=== PATIENT | female | born 1975 | race Caucasian/White ===

== ENCOUNTER → 2020-12-31 14:14 | Outpatient (BNVA) | payer OTHER, SELFPAY | PROVIDERS: PCP Family Medicine; Visit Provider Physician Assistant ==

== ENCOUNTER → 2021-01-01 08:16 | Outpatient (BNVA) | payer OTHER, SELFPAY | PROVIDERS: PCP Family Medicine; Visit Provider Surgery ==

== ENCOUNTER → 2021-01-02 08:26 | Outpatient (BNVA) | payer OTHER, SELFPAY | PROVIDERS: PCP Family Medicine; Visit Provider Surgery ==

== ENCOUNTER 2021-01-13 07:38 | Outpatient (REF) | payer OTHER, SELFPAY ==
--- NOTE | ~2021-01-13 | XR_ITS ---
EXAMINATION: XR CHEST CLINICAL INFORMATION: Morbid obesity secondary to excess calories. COMPARISON: None TECHNIQUE: 2 views of the chest were obtained. FINDINGS: No significant abnormality is noted involving the heart, lungs, mediastinum, bony thorax or soft tissues. A right-sided dual-lead pacemaker is in good position without abnormality. XR/XR chest 2V IMPRESSION: No acute cardiopulmonary process.
--- NOTE | 2021-01-13 08:10 | ECG_ITS ---
Test Reason : E66.01 MORBID OBESIT Blood Pressure : / mmHG Vent. Rate : 057 BPM Atrial Rate : 057 BPM P-R Int : 204 ms QRS Dur : 164 ms QT Int : 510 ms P-R-T Axes : 035 097 -13 degrees QTc Int : 496 ms Atrial-sensed ventricular-paced rhythm Abnormal ECG No previous ECGs available Referred By: Genaro Angel Electronically Signed By:Christiano Trimble
[2021-01-13 08:23] LABS: MANUAL DIFF FLAG NO
[2021-01-13 08:30] LABS: Basophils Percent Auto 0.7 % (0-2); Eosinophils Absolute Auto 0.4 X10*3/uL (0.0-0.4); Eosinophils Percent Auto 6.5 % (0-4); Hematocrit 42.2 % (37-47); Hemoglobin 13.8 g/dl (12.0-16.0); Imm Gran Abs Auto 0.01 X10*3/uL (0.00-0.03); Imm Gran Pct Auto 0.2 % (0.0-0.4); Lymphocytes Absolute Auto 2.1 X10*3/uL (1.2-4.9); Lymphocytes Percent Auto 37.6 % (20-40); Mean Corpuscular HGB Conc 32.7 g/dl (31.0-35.0); Mean Corpuscular Hemoglobin 30.1 pg (27.0-33.0); Mean Corpuscular Volume 91.9 fL (80-98); Mean Platelet Volume 11.7 fL (9.4-12.3); Monocytes Absolute Auto 0.5 X10*3/uL (0.1-1.2); Monocytes Percent Auto 8.6 % (2-11); Neutrophils Absolute Auto 2.6 X10*3/uL (2.0-8.3); Neutrophils Percent Auto 46.4 % (45-73); Platelet Count 290 X10*3/uL (160-400); Red Blood Count 4.59 X10*6/uL (4.20-5.50); Red Cell Distribution Width 13.1 % (11.0-16.0); White Blood Count 5.7 X10*3/uL (4.8-10.8)
[2021-01-13 08:33] LABS: Estimated Average Glucose 100 mg/dL; Hemoglobin A1c % 5.1 %
[2021-01-13 08:52] LABS: Alanine Aminotransferase 37 U/L (0-31); Albumin Level 3.9 g/dL (3.5-5.0); Alkaline Phosphatase 55 U/L (39-117); Anion Gap 11 (12-20); Aspartate Amino Transferase 24 U/L (5-31); Bilirubin Total 0.3 mg/dL (0.0-1.0); Blood Urea Nitrogen 18 mg/dL (9-16); Calcium 8.9 mg/dL (8.4-10.2); Carbon Dioxide 29 mmol/L (22-29); Chloride 104 mmol/L (96-108); Cholesterol 163 mg/dL; Estimated Glomerular Filt Rate > 60; Glucose Random 79 mg/dL (60-115); HDL Cholesterol 45 mg/dL; LDL Cholesterol Calculated 103 mg/dl; Potassium 4.6 mmol/L (3.3-5.1); Sodium 139 mmol/L (135-145); Total Protein 6.7 g/dL (6.5-8.0); Triglycerides 78 mg/dL
[2021-01-13 09:17] LABS: Ferritin 16 ng/mL (10-250); TSH reflex Free T4 0.99 uIU/mL (0.32-4.0); Vitamin D 25-OH Total 27.3 ng/mL (>30)
[2021-01-13 09:29] LABS: Folate 12.7 ng/mL (> or = 4.0); Vitamin B12 574 pg/mL (200-900)
[2021-01-14 14:57] LABS: H Pylori Breath Test NOT DETECTED (NOT DETECTED)
[2021-01-14 15:46] LABS: Calcium (PTHI) 9.2 mg/dL (8.6-10.2); PTHI 31 pg/mL (14-64)
[2021-01-16 00:47] LABS: Zinc 84 mcg/dL (60-130)
[2021-01-16 11:56] LABS: Vitamin B1 10 nmol/L (8-30)
[2021-01-19 04:21] LABS: Vitamin A 46 mcg/dL (38-98)
== END 2021-01-13 07:39 | disposition home or self-care (01) ==
LOC: HO.LAB 07:38
PROVIDERS: PCP Family Medicine; Visit Provider Surgery
DX: E66.01 Morbid (severe) obesity due to excess calories (principal); I10 Essential (primary) hypertension; J45.909 Unspecified asthma, uncomplicated
CPT/HCPCS: 36415; 71046; 80053; 80061; 82306; 82607; 82728; 82746; 83013; 83036; 83525; 83970; 84425; 84443; 84590; 84630; 85025; 86140; 93005

== ENCOUNTER → 2021-01-23 08:39 | Outpatient (BNVA) | payer OTHER, SELFPAY | PROVIDERS: PCP Family Medicine; Visit Provider Surgery ==

== ENCOUNTER 2021-01-28 08:02 | Outpatient (REF) | payer OTHER, SELFPAY ==
--- NOTE | ~2021-01-28 | US_ITS ---
EXAMINATION: US COMPLETE ABDOMEN WITH LIVER ELASTOGRAPHY CLINICAL INFORMATION: Morbid/severe obesity due to excess calories. COMPARISON: None. TECHNIQUE: Real-time imaging of the abdominal viscera. Noninvasive ultrasound liver fibrosis assessment is performed using [employer] ElastPQ point quantification shear wave elastography (pSWE) with a C5-2 MHz transducer. Multiple elastography samples are obtained. FINDINGS: PANCREAS: Normal. The visualized pancreatic head and body are normal in appearance. The remainder of the pancreas is obscured from visualization by the overlying bowel gas. ABDOMINAL AORTA: The proximal, middle, and distal aortic segments are normal in caliber. INFERIOR VENA CAVA: Visualized portions are normal. LIVER: The liver demonstrates normal size, contour and increased echogenicity. No focal lesion or intrahepatic biliary duct dilatation. The right lobe measures 15.3 cm in length. The left lobe measures 6.3 cm in length. Portal flow is hepatopedal. Shear wave liver elastography median stiffness is 1.01 m/s (reference: normal median stiffness is 1.3 m/s or less). IQR/median stiffness to assess sampling precision is 0.05 (reference: good quality data set is IQR/median stiffness of 0.15 or less). GALLBLADDER: Normal. The gallbladder is physiologically distended without evidence of stones, sludge, polyps, wall thickening or pericholecystic fluid. COMMON BILE DUCT: Normal in caliber measuring 0.18 cm in diameter. RIGHT KIDNEY: Normal. No hydronephrosis. No renal calculi or focal parenchymal lesions. The kidney measures 10.6 cm in maximum dimension. LEFT KIDNEY: Normal. No hydronephrosis. No renal calculi or focal parenchymal lesions. The kidney measures 11.2 cm in maximum dimension. SPLEEN: Normal. The spleen measures 9.9 cm in maximum dimension. FREE FLUID: None. US/US abdomen comp w elastography IMPRESSION: 1. Hepatic steatosis without any focal lesion. The rest of the abdominal ultrasound is unremarkable. 2. Liver elastography: Mean stiffness 1.01 m/s. Normal exam. REFERENCE: Society of Radiologists in Ultrasound Liver Stiffness Thresholds (2020): LIVER STIFFNESS THRESHOLDS: *Liver Stiffness equal or less than 1.3 m/s: High probability of being normal. *Liver Stiffness less than 1.7 m/s: In the absence of other known clinical signs, rules out compensated advanced chronic liver disease. *Liver Stiffness 1.7-2.1 m/s: Suggestive of compensated advanced chronic liver disease but need further test for confirmation. *Liver Stiffness over 2.1 m/s: Rules in compensated advanced chronic liver disease. *Liver Stiffness over 2.4 m/s: Suggestive of clinically significant portal hypertension. QUALITY OF DATA SET: *IQR/Median value equal or less than 0.15 implies a quality data set. *IQR/Median value over 0.15 implies a poor quality data set. SIGNIFICANT CHANGE FROM PRIOR EXAM: Significant change if liver stiffness measurement is 10% or greater from prior exam. OTHER CONSIDERATIONS: The stage of liver fibrosis may be overestimated in the setting of acute hepatitis, liver inflammation, elevated liver function tests, hepatic vascular congestion, obstructive cholestasis, non-fasting state, and infiltrative diseases such as amyloidosis and lymphoma. In some patients with NAFLD, the liver stiffness thresholds for compensated advanced chronic liver disease may be lower. In causes other than viral hepatitis and NAFLD, liver stiffness thresholds are not well established.
--- NOTE | ~2021-01-28 | FL_ITS ---
EXAMINATION: XR GI SERIES CLINICAL INFORMATION: Morbid obesity due to excessive calories. COMPARISON: None. TECHNIQUE: Routine upper GI air-contrast study was performed in upright and lying position. FINDINGS: Following oral administration of thick barium and effervescent granules, there is normal propagation of bolus from the oral cavity through the pharynx and esophagus and into the stomach without obstruction or narrowing. On placing patient supine and prone, the course, caliber and peristalsis of the stomach are normal. There is a small sliding hiatal hernia with moderate gastroesophageal reflux. The mucosal pattern of the stomach, duodenum bulb and the sweep are normal. The course and caliber of the duodenum is normal. Incidental finding of dual pacer electrodes in right atrium and right ventricle. FLUOROSCOPY TIME: 2.1 minutes. DOSE AREA PRODUCT: 37.25 uGy-m2 (microgray-meter squared). FL/FL upper GI series IMPRESSION: Small sliding hiatal hernia with moderate gastroesophageal reflux.
== END 2021-01-28 08:03 | disposition home or self-care (01) ==
LOC: HO.US 08:02
PROVIDERS: Visit Provider Surgery
DX: Z01.818 Encounter for other preprocedural examination (principal); E66.01 Morbid (severe) obesity due to excess calories; K21.9 Gastro-esophageal reflux disease without esophagitis; I10 Essential (primary) hypertension; J45.909 Unspecified asthma, uncomplicated
CPT/HCPCS: 74240; 76705; 76981

== ENCOUNTER → 2021-01-28 09:08 | Outpatient (REF) | payer OTHER, SELFPAY | LOC: HO.CARD 09:08 | PROVIDERS: Visit Provider Surgery | DX: Z13.89 Encounter for screening for other disorder (principal) ==

== ENCOUNTER → 2021-02-18 08:16 | Outpatient (BNVA) | payer OTHER, SELFPAY | PROVIDERS: PCP Family Medicine; Visit Provider Surgery ==

== ENCOUNTER → 2021-02-26 09:47 | Outpatient (REF) | payer OTHER, SELFPAY ==
--- NOTE | 2021-02-26 09:53 | CA_ITS ---
Transthoracic Echocardiogram Patient (Last, First, Middle): February, Gender: Female Date of : 1975 Age: 45 Procedure Date: 02/26/2021 Procedure Type: Transthoracic Echocardiogram Location: OP Height: 154.94 cm Weight: 93.44 kg BSA: 1.91 m2 Heart Rate: bpm BP: 126 / 80 mmHg Offset Machine Operator: REMIGIO Avilez MD: Genaro Angel MD [facility] Room Attendant: Lalito Sharp MD Symptoms: R94.31 - Abnormal electrocardiogram [ECG] [EKG] Study Quality: Fair/contrast ECG Rhythm: Ventriculary paced rhythm Conclusions: - 1. Low normal LV systolic function with normal diastolic function 2. Normal cardiac valvular Doppler 3. Normal RV systolic pressure 4. No pericardial effusion Findings Procedure Information Contrast agent, definity, is being given per protocol without apparent complications. Left Ventricle Normal left ventricular cavity size. There is normal left ventricular wall thickness. The left ventricular systolic function is low normal. The visually estimated ejection fraction is between 50-55%. There is paradoxical septal motion consistent with a right ventricular pacemaker. Diastolic function is normal for age. Right Ventricle Normal right ventricular cavity size and systolic function. There is a pacemaker wire seen in the right ventricle. Atria The left atrium is likely dilated. There is no evidence of interatrial shunt. The right atrium is normal in size. A pacemaker wire is identified in the right atrium. Aortic Valve The aortic valve structure and function is likely normal. There is no aortic valve stenosis. There is no aortic valve regurgitation. Mitral Valve Likely normal mitral valve structure and function. There is trace mitral valve regurgitation. There is no mitral valve stenosis. Pulmonic Valve The pulmonic valve was not well visualized. Tricuspid Valve Likely normal tricuspid valve structure and function. There is mild tricuspid valve regurgitation. The right ventricular systolic pressure is normal. The right ventricular systolic pressure is 22 mmHg. Normal right atrial pressure. There is no evidence of pulmonary hypertension. Great Vessels All visible segments of the aorta are normal in size. The pulmonary artery was not well visualized. Venous The inferior vena cava is normal in size and collapses greater than 50% with inspiration. Pericardium/Pleural There is no evidence of pericardial effusion. Prior Study Comparison No prior study available for comparison. Measurements 2D Linear Measurements IVSd: 1.01 0.6-0.9/0.6-1.0 cm LVIDd: 4.05 3.9-5.3/4.2-5.9 cm LVIDd Index: 2.12 2.4-3.2/2.2-3.1 cm/m2 LVIDs: 2.85 2.0-3.6 cm LVPWd: 1.02 0.7-1.1 cm Ao Root: 2.90 2.1-3.5 cm LA Diam: 3.40 2.7-3.8/3.0-4.0 cm LAIDs Index: 1.78 1.5-2.3 cm/m2 LV Mass: 164.66 67-162/88-224 g LV Mass Index: 86.21 43-95/49-115 g/m2 LVOT Diam: 2.00 3.0+(-)1.3 cm 2D Systolic Function EF 4C: 54.30 >55% EF 2C: 54.50 >55% EF BiP: 53.50 >55% Mitral Valve MV Pk E: 0.66 MV PK A: 0.54 MV Decel Time: 263.00 E/A: 1.20 E'Lateral: 10.80 E'Medial: 6.64 E/E' Med: 9.90 E/E' Lat: 6.10 PHT: 77.00 MVA PHT: 2.86 Decel Hutchinson: 2.49 Aortic Valve AoV Pk Mariusz: 1.05 AoV Mn Mariusz: 0.81 AoV VTI: 0.27 AoV Pk Grad: 4.00 Aov Mn Grad: 3.00 AGUILAR Cont.VTI: 2.74 LVOT LVOT Pk Mariusz: 1.10 LVOT Mn Mariusz: 0.66 LVOT VTI: 0.24 LVOT Pk Grad: 5.00 LVOT Mn Grad: 2.00 LVOT Diam: 2.00 LVOT Area: 3.14 Diastolic Function MV Pk E: 0.66 MV Pk A: 0.54 E/A: 1.20 E'Medial: 6.64 E/E' Med: 9.90 E' Laterial: 10.80 E/E' Lat: 6.10 Tricuspid Valve TR Pk Mariusz: 2.20 TR Pk Grad: 19.00 RA Press: 3.00 RVSP: 22.00 Great Vessels Aorta Ao Root-2D: 2.90 2.0-3.7 cm Ao Asc: 3.30 2.1-3.4 cm Ao Arch: 2.50 Updated in Other Vendor System with Status of Final Lalito Sharp MD electronically signed on 03/01/2021 12:16:19 PM with status of Final
== END ==
LOC: HO.CARD 09:47
PROVIDERS: Visit Provider Surgery
DX: Z01.818 Encounter for other preprocedural examination (principal); R94.31 Abnormal electrocardiogram [ECG] [EKG]; I10 Essential (primary) hypertension
CPT/HCPCS: 93306; Q9957

== ENCOUNTER → 2021-03-13 08:33 | Outpatient (BNVA) | payer OTHER, SELFPAY | PROVIDERS: PCP Family Medicine; Visit Provider Surgery ==

== ENCOUNTER → 2021-04-01 08:16 | Outpatient (BNVA) | payer OTHER, SELFPAY | PROVIDERS: PCP Family Medicine; Visit Provider Surgery ==

== ENCOUNTER → 2021-04-14 07:42 | Outpatient (BNVA) | payer OTHER, SELFPAY | PROVIDERS: PCP Family Medicine; Visit Provider Surgery ==

== ENCOUNTER 2021-04-17 07:57 | Outpatient (REF) | payer OTHER, SELFPAY ==
[2021-04-17 09:11] LABS: MANUAL DIFF FLAG NO
[2021-04-17 09:13] LABS: Basophils Percent Auto 0.6 % (0-2); Eosinophils Absolute Auto 0.4 X10*3/uL (0.0-0.4); Eosinophils Percent Auto 7.3 % (0-4); Hematocrit 40.5 % (37-47); Hemoglobin 13.5 g/dl (12.0-16.0); Imm Gran Abs Auto 0.01 X10*3/uL (0.00-0.03); Imm Gran Pct Auto 0.2 % (0.0-0.4); Lymphocytes Absolute Auto 1.7 X10*3/uL (1.2-4.9); Lymphocytes Percent Auto 35.2 % (20-40); Mean Corpuscular HGB Conc 33.3 g/dl (31.0-35.0); Mean Corpuscular Hemoglobin 30.7 pg (27.0-33.0); Mean Platelet Volume 12.1 fL (9.4-12.3); Monocytes Absolute Auto 0.5 X10*3/uL (0.1-1.2); Monocytes Percent Auto 9.9 % (2-11); Neutrophils Absolute Auto 2.2 X10*3/uL (2.0-8.3); Neutrophils Percent Auto 46.8 % (45-73); Platelet Count 224 X10*3/uL (160-400); Red Cell Distribution Width 13.3 % (11.0-16.0); White Blood Count 4.8 X10*3/uL (4.8-10.8)
[2021-04-17 09:18] LABS: INTERNATIONAL NORM RATIO 1.2 (0.9-1.1); Prothrombin Time 14.2 SEC (10.8-13.0)
[2021-04-17 09:21] LABS: Partial Thromboplastin Time 35.7 SEC (24.1-38.0)
[2021-04-17 09:36] LABS: Alanine Aminotransferase 28 U/L (0-31); Albumin Level 3.9 g/dL (3.5-5.0); Alkaline Phosphatase 51 U/L (39-117); Anion Gap 12 (12-20); Aspartate Amino Transferase 23 U/L (5-31); Bilirubin Total 0.4 mg/dL (0.0-1.0); Blood Urea Nitrogen 15 mg/dL (9-16); C Reactive Protein 0.35 mg/dL (< or = 0.50); Calcium 9.2 mg/dL (8.4-10.2); Carbon Dioxide 27 mmol/L (22-29); Chloride 106 mmol/L (96-108); Cholesterol 171 mg/dL; Estimated Glomerular Filt Rate > 60; Glucose Random 81 mg/dL (60-115); HDL Cholesterol 44 mg/dL; LDL Cholesterol Calculated 113 mg/dl; Potassium 4.6 mmol/L (3.3-5.1); Sodium 140 mmol/L (135-145); Total Protein 6.7 g/dL (6.5-8.0); Triglycerides 70 mg/dL
[2021-04-17 09:58] LABS: TSH reflex Free T4 1.64 uIU/mL (0.32-4.0)
[2021-04-17 10:00] LABS: Estimated Average Glucose 100 mg/dL; Hemoglobin A1c % 5.1 %
[2021-04-20 11:47] LABS: Insulin Level Total 3.1 uIU/mL
== END 2021-04-17 07:58 | disposition home or self-care (01) ==
LOC: HO.LAB 07:57
PROVIDERS: PCP Family Medicine; Visit Provider Surgery
DX: E66.9 Obesity, unspecified (principal); Z68.36 Body mass index [BMI] 36.0-36.9, adult
CPT/HCPCS: 36415; 80053; 80061; 83036; 83525; 84443; 85025; 85610; 85730; 86140

== ENCOUNTER 2021-04-22 16:49 | Inpatient (IN) | payer OTHER, SELFPAY ==
[2021-04-17 10:55] VITALS: BMI 36.1
--- NOTE | 2021-04-17 13:47 | P.CONAN_ITS ---
Documented by User: Chantale Xiong 04/17/21 13:52 HPI - Anesthesia Eval Consult details Narrative: 45yo F for Gastrectomy Sleeve, EGD, Poss Diaphragmatic Hernia, Poss Ventral Hernia, Poss Open Cardiac/EP cleared [employer] Pacer in situ ([facility]) [facility] Active Problems Active Problems: All Active Problems (Updated 04/17/21 @ 11:06 by Laisha Zee) Abnormal EKG (Acute) Vitamin D deficiency (Acute) Obesity (Acute) BMI 39.0-39.9,adult (Acute) BMI 38.0-38.9,adult (Acute) BMI 37.0-37.9, adult (Acute) Constipation (Acute) BMI 36.0-36.9,adult (Acute) Sciatica (Acute) Anxiety (Acute) Depression (Acute) Hypertension (Acute) Asthma (Acute) Morbid obesity (Acute) Past Medical History Medical History Anxiety Asthma COVID-19 vaccine series completed Depression Environmental and seasonal allergies Hx of complete atrioventricular block Hypertension Hypothyroidism Morbid obesity Sciatica Seasonal allergies Family History Family History Mother No problems noted. Father Bladder cancer Brother No problems noted. Daughter No problems noted. Surgical History Surgical History History of permanent cardiac pacemaker placement Hx of wisdom tooth extraction Social History Social History Are you a primary care transport nurse to a significant other at home: No Do you presently have visiting nurse or other home services: No Alcohol intake: never Patient Tobacco Use Status: Never used Tobacco Meds Allergies Allergy/AdvReac Type Severity Reaction Status Date / Time No Known Allergies Allergy Verified 04/22/21 10:06 Home Medications Medication Instructions Recorded Confirmed Last Taken Type albuterol sulfate 90 mcg/actuation 1 puff PO Q4-6H PRN 12/31/20 04/17/21 Unknown History aerosol inhaler cetirizine 10 mg capsule 10 mg PO DAILY PRN 12/31/20 04/17/21 Unknown History escitalopram oxalate 20 mg tablet 20 mg PO DAILY 12/31/20 04/17/21 04/22/21 06:30 History levothyroxine 50 mcg tablet 50 mcg PO DAILY 12/31/20 04/17/21 04/22/21 06:30 History Exam Exam Date and Time: April 17, 2021 1347 Height,Weight and Vital Signs: Height 5 ft 1 in Weight 86.636 kg Pertinent Lab Results Pertinent Lab Results: Laboratory Tests 04/17/21 08:26 Blood Type O Positive Antibody Screen NEGATIVE Laboratory Tests 04/17/21 04/17/21 04/17/21 08:26 08:26 08:26 WBC 4.8 Hgb 13.5 Hct 40.5 Plt Count 224 PT 14.2 H INR 1.2 H APTT 35.7 Sodium 140 Potassium 4.6 Chloride 106 Carbon Dioxide 27 Anion Gap 12 BUN 15 Creatinine 0.75 Estimated GFR > 60 Calcium 9.2 Total Bilirubin 0.4 AST 23 ALT 28 Alkaline Phosphatase 51 C-Reactive Protein 0.35 Total Protein 6.7 Albumin 3.9 TSH 1.64 Narrative Narrative: EKG 01/2021 Vent. Rate : 057 BPM Atrial Rate : 057 BPM P-R Int : 204 ms QRS Dur : 164 ms QT Int : 510 ms P-R-T Axes : 035 097 -13 degrees QTc Int : 496 ms Atrial-sensed ventricular-paced rhythm Abnormal ECG No previous ECGs available ECHO 02/2021 Conclusions: - 1. Low normal LV systolic function with normal diastolic function 2. Normal cardiac valvular Doppler 3. Normal RV systolic pressure 4. No pericardial effusion Pacer Interrogation 02/2021 Patient does have a hx of atrial lead noise but is appropriately sensing. Impedence 228 ohms which has been stable. Otherwise excellent lead parameters No significant arrhythmias noted Battery life remainin years Underlying complete heart block 100% V paced Assessment and Plan Assessment Anesthesia Assessment: Chart Reviewed Documented by User: Jabier Cuevas 04/22/21 11:45 PMFSH Past Medical History Medical History Anxiety Asthma COVID-19 vaccine series completed Depression Environmental and seasonal allergies Hx of complete atrioventricular block Hypertension Hypothyroidism Morbid obesity Sciatica Seasonal allergies Family History Family History Mother No problems noted. Father Bladder cancer Brother No problems noted. Daughter No problems noted. Surgical History Surgical History History of permanent cardiac pacemaker placement Hx of wisdom tooth extraction Social History Social History Are you a primary care transport nurse to a significant other at home: No Do you presently have visiting nurse or other home services: No Alcohol intake: never Patient Tobacco Use Status: Never used Tobacco Meds Allergies Allergy/AdvReac Type Severity Reaction Status Date / Time No Known Allergies Allergy Verified 04/22/21 10:06 Home Medications Medication Instructions Recorded Confirmed Last Taken Type albuterol sulfate 90 mcg/actuation 1 puff PO Q4-6H PRN 12/31/20 04/17/21 Unknown History aerosol inhaler cetirizine 10 mg capsule 10 mg PO DAILY PRN 12/31/20 04/17/21 Unknown History escitalopram oxalate 20 mg tablet 20 mg PO DAILY 12/31/20 04/17/21 04/22/21 06:30 History levothyroxine 50 mcg tablet 50 mcg PO DAILY 12/31/20 04/17/21 04/22/21 06:30 History Exam Airway Mallampati Class: III TM Dist: >3cm Neck ROM: Full Loose/Missing/Broken Teeth: No Heart: [id number] Lungs: cta b/l Assessment and Plan Assessment Anesthesia Assessment: Anesthesia Plan Discussed, PAT Visit and Chart Reviewed Final Anesthetic Review NPO: Yes ASA Class: III Final Preanesthetic Review: No Changes in Pt Med Stat, Meds/Allgs Chart Reviewed, Consent Obtained/Reviewed and Anes Risks/Benef Reviewed Patient Risk: Intermediate Procedure Risk: Intermediate Assessment/Block/Sedation in SS: Assess/Block/Sedation-SS Anesthetic Plan Anesthetic Plan: GA and Agree w/ Assess. and Plan Disposition: Standard PACU
--- NOTE | 2021-04-21 19:51 | MHC.SHP ---
Pre-Procedural Eval Section A The patient is an INPATIENT: Yes The History & Physical has been completed within 30 days and I have reviewed it.: Yes Section B Chief Complaint: Morbid Severe Obesity Details of Present Illness: Obesity Relevant Family History (Specify if Yes): No Relevant Social History: None Present Medications: see Short Stay Collaborative assessment Medical History: No relevant PMH History of Previous Operations: No relevant previous surgery Allergies: Allergies Allergy/AdvReac Type Severity Reaction Status Date / Time No Known Allergies Allergy Verified 04/17/21 09:54 Review of Systems Sugical H&P ROS: Negative: Constitution, Cardiovascular, Respiratory, Neurological, Psychiatric, Hem-Onc, Allergic/Immunologic, Gastrointestinal, Genitourinary, Musculoskeletal, Integumentary, Endocrine and Eyes/Ears/Nose/Throat Exam Surgical H&P Exam: Normal: HEENT, Normal: Heart, Normal: Lungs, Normal: Extremities, Normal: Abdomen, Normal: Skin and Normal: Neurological Plan Diagnosis/Plan: Unchanged I have reviewed the history and physical and performed a pertinent physical examination on my patient. No changes have occurred unless specified.
[2021-04-22] VITALS (12 sets, daily range): BP systolic 101–140; BP diastolic 57–79; PULSE 62–104; RESP 16–19; TEMP 36.4–36.9; O2SAT 92–99
[2021-04-22 10:11] LABS: UPreg QC Valid YES; Urine Pregnancy NEGATIVE (NEGATIVE)
[2021-04-22 10:20] LABS: COVID-19 Test Negative (Negative); IDNOW Serial# 9DD0AD1C
[2021-04-22] MEDS: Lactated Ringers 1,000 ML 999 ML IV (10:26)
[2021-04-22] MEDS: Lactated Ringers 1,000 ML 100 ML IVCONT (10:26)
--- NOTE | 2021-04-22 12:40 | PM.PNGS ---
Subjective Subjective Date of Service: 04/23/21 Interval history: Patient has mild incisional pain but was able to ambulate and use the incentive spirometer. She is tolerating phase 1 bariatric diet. Physical Exam Vital Signs: Vital Signs: Last Vital Signs Temp 98.4 F 04/22/21 10:07 Pulse 62 04/22/21 10:07 Resp 16 04/22/21 10:07 BP 107/70 04/22/21 10:07 Pulse Ox 99 04/22/21 10:07 Body Mass Index 36.1 GI: Inspection: Yes normal to inspection, Yes incision (clean, dry and intact) and Yes obesity Extrem: Right lower extremity: normal to inspection (no calf tenderness) Left lower extremity: normal to inspection (no calf tenderness) Progress Note: A&P Assessment and plan (1) Obesity: Status: Acute (2) BMI 36.0-36.9,adult: Status: Acute (3) Depression: Status: Acute (4) Hypertension: Status: Acute (5) Asthma: Status: Acute (6) Hypothyroidism: Status: Acute (7) Anxiety: Status: Acute (8) Sciatica: Status: Acute (9) Steatosis, liver: Status: Acute (10) GERD (gastroesophageal reflux disease): Status: Acute (11) Diaphragmatic hernia: Status: Acute (12) S/P laparoscopic sleeve gastrectomy: Status: Acute Assessment and Plan: s/p laparoscopic sleeve gastrectomy, gastropexy and diaphragmatic hernia repair Doing well Check am labs. If OK will discharge home (13) Status post repair of paraesophageal diaphragmatic hernia: Status: Acute Fall Risk Details Current Medications: Current Medications Generic Name Dose Route Start Last Admin Trade Name Freq PRN Reason Stop Dose Admin Albuterol Sulfate 2.5 mg 04/22/21 09:53 Albuterol Sulfate (0.083%) 2.5 Mg/3 Ml Vial.Neb INHALE ONCE PRN Shortness of Breath/Wheezing Fentanyl 50 mcg 04/22/21 11:43 Fentanyl Citrate/Pf 100 Mcg/2 Ml Vial IVPUSH Q5M PRN Pain, Moderate (Pain Scale 4-6 Hydromorphone HCl 0.5 mg 04/22/21 11:43 Hydromorphone Hcl 0.5 Mg/0.5 Ml Syringe IVPUSH Q5M PRN Pain, Severe (Pain Scale 7-10) Lactated Ringer's 1,000 mls @ 100 mls/hr 04/22/21 10:00 04/22/21 10:26 Lr IVCONT 100 mls/hr .Q10H CIARRA Administration Promethazine HCl 12.5 mg/ 50.5 mls @ 202 mls/hr 04/22/21 11:43 Sodium Chloride IV ONCE PRN Nausea and Vomiting Ondansetron HCl 4 mg 04/22/21 11:43 Ondansetron Hcl 4 Mg/2 Ml Vial IVPUSH ONCE PRN Nausea and Vomiting Oxycodone HCl 10 mg 04/22/21 11:43 Oxycodone Hcl Immed Release 5 Mg Tablet PO ONCE PRN Pain, Mild (Pain Scale 1-3) Time Spent With Patient Time: Total time spent is greater than 50% in coordination of care (as documented) at patient's floor/unit and/or counseling patient: Time with patient: less than 15 minutes Procedures Date of Service Date of Service: 04/23/21
--- NOTE | 2021-04-22 12:43 | P.BOP_ITS ---
Brief Operative Note Date of Service: 04/22/21 Pre-op diagnosis: Severe obesity and comorbidities Post-op diagnosis: same Procedure: INITIAL PATIENT BMI ON PRESENTATION AT OUR OFFICE: 41.5 kg/m2 LAST BMI BEFORE SURGERY: 36.2 kg/m2 COMORBIDITIES: Hypertension, GERD, diaphragmatic hernia, liver steatosis, hypothyroidism, asthma, depression, anxiety, sciatica The patient participated in an intensive weekly lifestyle intervention and exercise program during which the patient has lost between the initial office visit and the last preoperative visit 25.2lbs, or 11.49% of initial actual body weight. The patient met the BMI-criteria for bariatric surgery based on the BMI on initial presentation. The patient should not be penalized for achieving such weight loss because it is not sustainable long-term without surgical intervention and it was achieved in preparation for bariatric surgery under my direction and based on my published research ([email or web address] and [email or web address]) that a 10% preoperative weight loss improves long-term weight loss after surgery and reduces perioperative complications. Insurance carriers such as [facility] have endorsed my recommendations and have included in their policies criteria to include a 10% preoperative weight loss requirement. PROCEDURE: Esophago-gastroscopy, laparoscopic repair of incarcerated diaphragm atic hernia, laparoscopic lysis of adhesions, laparoscopic sleeve gastrectomy and laparoscopic gastropexy INDICATIONS: This is a 45 year-old female who was electively scheduled for laparoscopic, possibly open sleeve gastrectomy. The risks and complications of the procedure were discussed with the patient in advance, particularly the possibility of ; pulmonary embolism; staple line leak; bleeding; GERD; cardiac, pulmonary, or renal complications; as well as long-term problems such as insufficient weight loss, vitamin deficiency, strictures, or ulcers. The patient understood all the risks, and was in agreement to proceed with surgery. DESCRIPTION OF PROCEDURE: After informed consent was obtained from the patient, the patient was given preoperative antibiotics, and was transferred to the operating room. After successful induction of general anesthesia, pneumatic compressive devices were placed on both lower extremities. An upper endoscopy was performed next. The oropharynx and esophagus appeared to be within normal limits. There was a diaphragmatic hernia present of moderate size consistent with the findings of the preoperative upper GI. The stomach was entered. Then after all fluid and air were suctioned and the stomach was fully decompressed, the scope was withdrawn and secured in the mid esophagus. The patient was then prepped and draped in the usual sterile manner, and abdominal access was established at the right upper quadrant with the Yakelin technique. A 12 mm blunt port was inserted, and the abdomen was insufflated with CO2 to a pressure of 15 mmHg. Under direct visualization, additional ports were placed, specifically two 5 mm Versi-step ports to the left upper quadrant, and a 5 mm Versi-Step port to the right upper quadrant. 1% lidocained plan was used to infiltrate all port sites as well as all fascia defects. Using the EndoClose suture passer device, we placed a #1 Polysorb tie across the falciform ligament in order to retract it up against the abdominal wall and prevent injury of the ligament with our instruments during the procedure. Following that, the patient was placed in a steep reverse Trendelenburg position. An additional 5 mm port was placed to the right flank for the Mediflex retractor that was used to retract the left lobe of the liver. The gastro-esophageal fat pad was opened with the ultrasonic device (Thunderbeat, Olympus) and the anterior esophagus and hiatus were exposed. The angle of His was opened with the ultrasonic device the fundus of the stomach from any diaphragmatic and splenic attachments. I then opened the gastrocolic ligament between the transverse colon and the greater curvature of the stomach with the ultrasonic device to enter the lesser sac and facilitate the ligation of the short gastric vessels. I started at a mid-point along the greater curvature and using the Thunderbeat, all short gastric vessels were divided all the way to the angle of His until the left sherry was completely dissected at its entirety. I then divided the gastro-colic ligament distally to a distance of about 3-4 cm proximal to the esophagus. There was an obvious significant-sized hiatal hernia. I continued dissecting along the hiatus toward the left sherry and the angle of His. I fully mobilized the fat pad that was incarcerated in the hernia. I then continued by dissecting even further into the posterior retro-esophageal space all the way to the angle of His. I continued to mobilize the esophagus into the mediastinum circumferentially. Both vagal nerves were seen and preserved. At that point, I was able to have at least 3 to 5 cm of esophagus into the abdomen. After I completely mobilized the esophagus from both the left and right sherry and I had a good mobilization of the esophagus circumferentially, I closed the hernia defect with three interrupted #0 Surgidac sutures using the Endo Stitch device, out of which two were placed posterior and one anterior to the esophagus. The stomach was then divided transversely with one Endo KARLA-45 purple, one KARLA- 45 orange and three KARLA-60 articulating orange loads with the AEON stapler and loads. Every effort was made that the gastric sleeve had a tubular shape and an even caliber throughout. Once the sleeve resection was completed, the staple line of the gastric sleeve was reinforced with Hemoclips. The resected stomach was retrieved without difficulty from the Yakelin port. A gastropexy was then performed in order to prevent postoperative GERD and partial gastric volvulus. Several interrupted 2.0 Surgidac sutures were placed between the sleeve's staple line and the previously divided greater omentum and gastro-colic ligament using the Endo-Stitch device. An upper endoscopy was performed. There was no narrowing at the GE junction. Th e scope was easily advanced all the way to the pylorus which was clearly visualized. There was no narrowing anywhere and the sleeve's caliber was even throughout. The sleeve's staple line was inspected and there was no evidence of ischemia, bleeding or dehiscence. At that point the gastroscope was withdrawn from the patient?s mouth while we were decompressing the bowel and the stomach from any remaining air. I looked into the lesser sac to see how the sleeve was situating and it was situating well. There was no bleeding from the staple line, spleen, or short gastric vessels. The Mediflex retractor was removed, and the undersurface of the liver was inspected and there was no bleeding. The patient was placed in supine position. I closed the fascial defect of the 12 mm port site with a figure of eight #1 Polysorb suture. Then 100 cc 0.25 % Marcaine plain with 10 mg of Dexamethasone were used to infiltrate the fascial closure as well as all skin incisions. At this point, the abdomen was deflated, all ports were removed under direct vision, and no bleeding was noted from any of the port sites. The skin incisions were irrigated with saline and were closed with 4-0 absorbable monofilament sutures. Steri-Strips and OpSites were used to cover all incisions. The patient was extubated and was transferred in stable condition to the recovery room for further care. I was present and performed all aguilar parts of the procedure. Ms. Dominguez was the assistant teacher primary. There were no residents to assist with this case. Juanito Angel MD, PhD, FACS Surgeon: Genaro Angel MD Anesthesia: GETA, local and other (TAP block) Was an Television Journalist used for this Procedure?: No Television Journalist: Lena Dominguez Estimated blood loss (mL): 10 IV fluids (mL): 2,500 Urine output (mL): 0 (No [place] to record) Pathology: other (Stomach) Condition: stable Disposition: PACU
--- NOTE | 2021-04-22 15:35 | P.DS_ITS ---
DS: Providers Provider Date of Service: 04/23/21 Primary care physician: Rosemary Alexandra MD DS: Diagnosis Discharge Diagnosis (1) Depression: Status: Acute (2) Hypertension: Status: Acute (3) Asthma: Status: Acute (4) Hypothyroidism: Status: Acute (5) Anxiety: Status: Acute (6) Steatosis, liver: Status: Acute (7) GERD (gastroesophageal reflux disease): Status: Acute (8) Diaphragmatic hernia: Status: Acute (9) S/P laparoscopic sleeve gastrectomy: Status: Acute (10) Status post repair of paraesophageal diaphragmatic hernia: Status: Acute DS: Medications Discharge Medications Home Medications: Home Medications Medication Instructions Recorded Confirmed albuterol sulfate 90 mcg/actuation 1 puff PO Q4-6H PRN 12/31/20 04/17/21 aerosol inhaler cetirizine 10 mg capsule 10 mg PO DAILY PRN 12/31/20 04/17/21 escitalopram oxalate 20 mg tablet 20 mg PO DAILY 12/31/20 04/17/21 levothyroxine 50 mcg tablet 50 mcg PO DAILY 12/31/20 04/17/21 Previous Rx's Medication Instructions Recorded docusate sodium 100 mg capsule 100 mg PO DAILY #30 cap 03/31/21 ondansetron HCl 4 mg tablet 4 mg PO Q12H #20 tab 04/14/21 pantoprazole 40 mg tablet,delayed 40 mg PO DAILY #30 tab 04/14/21 release polyethylene glycol 3350 17 gram 17 g PO DAILY #14 ea 04/14/21 oral powder packet sucralfate 100 mg/mL oral 10 ml PO BID #400 ml 04/14/21 suspension DS: Summary Time Spent with Patient Time attestation: ADMITTING DIAGNOSIS: morbid obesity, HTN, hypothyroidism, asthma, anx/depression DISCHARGE DIAGNOSIS: same, s/p laparoscopic sleeve gastrectomy and repair diaphragmatic hernia PAST SURGICAL HISTORY: placement of cardiac pacemaker PROCEDURE: upper endoscopy, laparoscopic sleeve gastrectomy and repair of diaphragmatic hernia hernia DISCHARGE SUMMARY: History of Present Illness: The patient is a 45year-old woman with a BMI of 41.4 kg/m2 and associated co- morbidities as described above. The patient had extensive work-up,lost 25.2 lbs preoperatively and was electively scheduled for laparoscopic, possible open sleeve gastrectomy and gastropexy. Risks and complications of the surgery were discussed with the patient in advance, particularly the possibility of , pulmonary embolism, anastomotic leak, bleeding, bowel injury, GERD, cardiac, renal or pulmonary complications. The patient understood all the risks and was in agreement with the surgical plan. Hospital Course: The patient underwent an uneventful laparoscopic sleeve gastrectomy with gastropexy and repair of diaphragmatic hernia on the day of admission. Post operatively, the patient was transferred to the surgical floor. The patient was on IV Acetaminophen and IV dilaudid for pain control. Patient was started on bariatric phase 1 diet POD #0. On postoperative day one, the patient was feeling well without nausea, vomiting, fevers, or tachycardia. The patient had some mild incisional pain. The abdomen was soft. On the morning of postoperative day one, the patient was continued on 1 ounce of water or ice every half hour. During the first day, the patient did fairly well, having some incisional pain, but able to ambulate adequately and to tolerate l iquids well. Since the patient is doing well, we decided that the patient was ready to be discharged. The patient was given instructions to follow-up with me next week and to call my office for any fever over 101, persistent abdominal pain, nausea, vomiting, GERD, symptoms of DVT such as calf tenderness, or leg swelling, or pulmonary embolism such as chest pain or shortness of breath. The patient was also instructed to drink 40-60 ounces of liquids per day using the 1-ounce cups. The patient was given prescription for Tylenol for pain, Zofran prn for nausea, and pantoprazole and carafate. The patient was encouraged to ambulate and use the incentive spirometer. The patient was allowed to shower, but no baths, and encouraged to stay active at home. All of these instructions were given to the patient personally. All questions were answered and the patient understood all instructions, the instructions were also given to the patient in print. Total time spent providing and/or coordinating discharge services: 15 Discharge coordination time: Less than 30 minutes Quality: Stroke Does the patient have a stroke diagnosis?: No Physical Exam Vital Signs: Vital Signs: Last Vital Signs Temp 98.4 F 04/22/21 10:07 Pulse 62 04/22/21 10:07 Resp 16 04/22/21 10:07 BP 107/70 04/22/21 10:07 Pulse Ox 99 06/16/21 10:07 Body Mass Index 36.1 DS: Data Data Completed and Pending Pending studies at discharge: Pending at discharge 04/22/21 14:29 Surgical [PTH] Routine Labs on day of discharge: Laboratory Results - last 24 hr 04/22/21 04/22/21 09:50 09:50 Urine Test NEGATIVE COVID-19 ([facility]) Negative COVID-19 Clin Com See Note Discharge Plan Discharge Patient Disposition: Home, Self-Care Discharge Diagnosis: s/p sleeve gastrectomy Referrals: Rosemary Alexandra MD [Primary Care Provider] - 1 Week Discharge Medications: Continued docusate sodium [Colace] 100 mg capsule 100 mg PO DAILY Qty: 30 RF: 2 levothyroxine 50 mcg tablet 50 mcg PO DAILY RF: 0 escitalopram oxalate 20 mg tablet 20 mg PO DAILY RF: 0 albuterol sulfate 90 mcg/actuation HFA aerosol inhaler 1 puff PO Q4-6H PRN (Reason: Wheezing) RF: 0 Zyrtec 10 mg capsule 10 mg PO DAILY PRN (Reason: Allergic Symptoms) RF: 0 pantoprazole 40 mg tablet,delayed release (DR/EC) 40 mg PO DAILY Qty: 30 RF: 2 sucralfate 100 mg/mL suspension 10 ml PO BID Qty: 400 RF: 2 ondansetron HCl [Zofran] 4 mg tablet 4 mg PO Q12H Qty: 20 RF: 0 Discharge Orders: Discharge Order (Routine); Ordered 04/23/21 Ordered By: Rachel De Luna Diet: other Activity on Discharge: No heavy lifting Stand Alone Forms: Patient Portal Discharge page Activity Restrictions/Additional Instructions: No tub baths, sex or returning to work until discussed at first post op appointment. No exercise, alcohol, tobacco or illegal drug use. Continue to use incentive spirometer hourly while awake. Walk in home for 5- 10 minutes every 2 hours during the first week. Continue phase 1 diet today and start phase 2 diet tomorrow morning. Follow all instructions in the bariatric handbook and call with any questions. The patient's medical history has been reviewed and they are considered low risk for post op DVT and therefore DVT prophylaxis is not considered necessary. Travel after surgery was reviewed. The patient has not disclosed any travel plans during the first 30 days after surgery and they have been advised that within the first 30 days after surgery any bus, plane, train or car travel over 2 hours in duration is contraindicated due to the possibility of developing blood clots from immobility. Any travel, needs to include periods of ambulation of 10 minutes in duration every 2 hours. The patient was instructed to discuss any plans for travel during this period with their bariatric surgeon. Care Plan Goals: weight loss Health Concerns: morbid obesity Plan of Treatment: see discharge instructions Assessment: stable POD # 1 Discharge Date/Time: 04/23/21 11:48
[2021-04-22] MEDS: Famotidine/PF 20 MG/2 ML VIAL IVPUSH ×2 (15:57→20:33)
[2021-04-22 16:17] LABS: Hematocrit 40.3 % (37-47); Hemoglobin 13.2 g/dl (12.0-16.0)
[2021-04-22 16:38] LABS: Anion Gap 15 (12-20); Blood Urea Nitrogen 9 mg/dL (9-16); Calcium 8.8 mg/dL (8.4-10.2); Carbon Dioxide 23 mmol/L (22-29); Chloride 105 mmol/L (96-108); Creatinine Clr Calc Pharmacy 95.6; Estimated Glomerular Filt Rate > 60; Glucose Random 91 mg/dL (60-115); Sodium 139 mmol/L (135-145)
[2021-04-22] MEDS: Lactated Ringers 1,000 ML 125 ML IVCONT (18:03)
[2021-04-22] MEDS: ceFAZolin Sodium/Dextrose,Iso 2 GM/50 ML PIGGYBACK IV (18:04)
[2021-04-22] MEDS: Metoclopramide HCl 10 MG/2 ML VIAL IVPUSH (19:42)
[2021-04-22] MEDS: 0.9 % Sodium Chloride Flush 3 ML SYRINGE IVFLUSH (20:34)
[2021-04-23] VITALS: BP 113/69; PULSE 79; RESP 18; TEMP 36.2; O2SAT 93
[2021-04-23] MEDS: ondansetron HCL 4 MG/2 ML VIAL IVPUSH (01:52)
[2021-04-23] MEDS: Lactated Ringers 1,000 ML 125 ML IVCONT (01:52)
[2021-04-23 04:00] VITALS: BP 114/67; PULSE 66; RESP 18; TEMP 36.1; O2SAT 97
[2021-04-23] MEDS: Levothyroxine Sodium 50 MCG TABLET PO (05:45)
[2021-04-23] MEDS: HYDROmorphone HCl 0.5 MG/0.5 ML SYRINGE 0.25 MG IVPUSH (05:49)
[2021-04-23 06:21] LABS: MANUAL DIFF FLAG NO
[2021-04-23 07:01] LABS: Basophils Percent Auto 0.1 % (0-2); Hematocrit 35.2 % (37-47); Hemoglobin 11.7 g/dl (12.0-16.0); Imm Gran Abs Auto 0.03 X10*3/uL (0.00-0.03); Imm Gran Pct Auto 0.3 % (0.0-0.4); Lymphocytes Absolute Auto 1.2 X10*3/uL (1.2-4.9); Lymphocytes Percent Auto 13.9 % (20-40); Mean Corpuscular HGB Conc 33.2 g/dl (31.0-35.0); Mean Corpuscular Hemoglobin 30.7 pg (27.0-33.0); Mean Corpuscular Volume 92.4 fL (80-98); Monocytes Absolute Auto 0.8 X10*3/uL (0.1-1.2); Monocytes Percent Auto 8.8 % (2-11); Neutrophils Absolute Auto 6.9 X10*3/uL (2.0-8.3); Neutrophils Percent Auto 76.9 % (45-73); Platelet Count 218 X10*3/uL (160-400); Red Blood Count 3.81 X10*6/uL (4.20-5.50); Red Cell Distribution Width 13.4 % (11.0-16.0); White Blood Count 8.9 X10*3/uL (4.8-10.8)
[2021-04-23 07:11] LABS: Anion Gap 12 (12-20); Blood Urea Nitrogen 7 mg/dL (9-16); Calcium 8.4 mg/dL (8.4-10.2); Carbon Dioxide 24 mmol/L (22-29); Chloride 104 mmol/L (96-108); Creatinine Clr Calc Pharmacy 102.5; Estimated Glomerular Filt Rate > 60; Glucose Random 97 mg/dL (60-115); Potassium 4.5 mmol/L (3.3-5.1); Sodium 135 mmol/L (135-145)
[2021-04-23] MEDS: Famotidine/PF 20 MG/2 ML VIAL IVPUSH (07:35)
[2021-04-23 07:49] VITALS: BP 127/61; PULSE 64; RESP 17; TEMP 36.6; O2SAT 98
--- NOTE | 2021-04-23 09:16 | HO.POSTANES ---
Post Anesthesia Evaluation Post Anesthesia Evaluation Vital Signs: Vital Signs Temp Pulse Resp BP Pulse Ox 04/23/21 07:49 97.8 F 64 17 127/61 98 04/23/21 04:00 97 F 66 18 114/67 97 04/23/21 00:00 97.2 F 79 18 113/69 93 Anesthesia: General Endotracheal-GETA Mental Status: Awake Pain Control: Satisfactory Nausea/Vomiting: None Hydration: Adequate Anesthesia-Related Issues: No Anes. Related Issues
--- NOTE | 2021-04-23 10:01 | MHC.CM.PN ---
NURSE CASE MANAGEER NOTE ELECTRONIC MEDICAL RECORD REVIEWED long with case discussed with staff nurse , nancy with patient explained the role of the nurse transitional care nurse IN THE TRANSITION FROM THE [facility] TO HOME, EDUCATED ABOUT THE IMPORTANCE OF HAVING A HEALTH CARE PROXY PATIENT LIVES [place]OD[place] HER AND CHILDREN , SHE IS OUT ON LEAVE NOW . SHE IS ACTIVE, INDEPENDENT IN ALL ADLS AND MOBILITY WITH OUT ANY DEVICE. - DISCHARGE PLAN- HOME WITH AND FAMILY PCP ELIF ACOSTAO PATIENT TO CALL FOR FOLLOW UP POST [facility] DISCHARGE TRANSP[ORTATION FAMILY ALL DISCHARGE PAPAERWORK COMPLETED
== END 2021-04-23 11:48 | disposition home or self-care (01) | DRG 620 ==
PROVIDERS: Nurse Practitioner; Admitting Provider Physician Assistant; PCP Family Medicine; Visit Provider Surgery
PROC: 0DB64Z3 Excision of Stomach, Percutaneous Endoscopic Approach, Vertical (ICD-10-PCS; CPT 43845; principal; 2021-04-22 11:10)
DX: E66.01 Morbid (severe) obesity due to excess calories (principal); K44.0 Diaphragmatic hernia with obstruction, without gangrene; K21.9 Gastro-esophageal reflux disease without esophagitis; F32.9 Major depressive disorder, single episode, unspecified; J45.909 Unspecified asthma, uncomplicated; I10 Essential (primary) hypertension; M54.30 Sciatica, unspecified side; Z68.36 Body mass index [BMI] 36.0-36.9, adult; E03.9 Hypothyroidism, unspecified; K76.0 Fatty (change of) liver, not elsewhere classified; Z20.822 Contact with and (suspected) exposure to COVID-19; Z95.0 Presence of cardiac pacemaker; Z79.890 Hormone replacement therapy; Z79.899 Other long term (current) drug therapy
CPT/HCPCS: 36415; 80048; 81025; 85014; 85018; 85025; 86850; 86900; 86901; 87635; 88307; 88342; 99024; A4649; J0131; J0690; J1100; J1170; J2250; J2370; J2405; J2765; J3010

== ENCOUNTER → 2021-05-13 08:11 | Outpatient (BNVA) | payer OTHER, SELFPAY | PROVIDERS: PCP Family Medicine; Referring Provider Family Medicine; Visit Provider Surgery ==

== ENCOUNTER → 2021-07-06 07:02 | Outpatient (BNVA) | payer OTHER, SELFPAY | PROVIDERS: PCP Family Medicine; Visit Provider Surgery ==

== ENCOUNTER → 2021-08-10 07:10 | Outpatient (BNVA) | payer OTHER, SELFPAY | PROVIDERS: PCP Family Medicine; Visit Provider Surgery ==

== ENCOUNTER → 2021-09-21 07:19 | Outpatient (BNVA) | payer OTHER, SELFPAY | PROVIDERS: PCP Family Medicine; Visit Provider Surgery ==

== ENCOUNTER → 2021-09-28 08:18 | Outpatient (BNVA) | payer OTHER, SELFPAY | PROVIDERS: PCP Family Medicine; Visit Provider Physician Assistant ==

== ENCOUNTER → 2021-11-09 08:10 | Outpatient (BNVA) | payer OTHER, SELFPAY | PROVIDERS: PCP Family Medicine; Visit Provider Physician Assistant | DX: K21.9 Gastro-esophageal reflux disease without esophagitis (principal); Z98.84 Bariatric surgery status; E66.3 Overweight ==

== ENCOUNTER 2021-12-04 07:37 | Outpatient (REF) | payer OTHER, SELFPAY ==
[2021-12-04 07:54] LABS: MANUAL DIFF FLAG NO
[2021-12-04 08:21] LABS: Basophils Percent Auto 0.8 % (0-2); Eosinophils Absolute Auto 0.3 X10*3/uL (0.0-0.4); Eosinophils Percent Auto 6.8 % (0-4); Hematocrit 38.7 % (37.0-47.0); Hemoglobin 12.6 g/dl (12.0-16.0); Imm Gran Abs Auto 0.01 X10*3/uL (0.00-0.03); Imm Gran Pct Auto 0.3 % (0.0-0.4); Lymphocytes Absolute Auto 1.8 X10*3/uL (1.2-4.9); Lymphocytes Percent Auto 46.3 % (20-40); Mean Corpuscular HGB Conc 32.6 g/dl (31.0-35.0); Mean Corpuscular Hemoglobin 30.5 pg (27.0-33.0); Mean Corpuscular Volume 93.7 fL (80.0-98.0); Mean Platelet Volume 11.9 fL (9.4-12.3); Monocytes Absolute Auto 0.4 X10*3/uL (0.1-1.2); Monocytes Percent Auto 9.6 % (2-11); Neutrophils Absolute Auto 1.4 x10*3/uL (2.0-8.3); Neutrophils Percent Auto 36.2 % (45-73); Platelet Count 215 X10*3/uL (160-400); Red Blood Count 4.13 X10*6/uL (4.20-5.50); Red Cell Distribution Width 13.1 % (11.0-16.0)
[2021-12-04 08:43] LABS: Estimated Average Glucose 97 mg/dL
[2021-12-04 08:46] LABS: Alanine Aminotransferase 19 U/L (0-31); Albumin Level 3.7 g/dL (3.5-5.0); Alkaline Phosphatase 55 U/L (39-117); Anion Gap 10 (12-20); Aspartate Amino Transferase 19 U/L (5-31); Bilirubin Total 0.3 mg/dL (0.0-1.0); Blood Urea Nitrogen 19 mg/dL (9-16); Calcium 9.4 mg/dL (8.4-10.2); Carbon Dioxide 29 mmol/L (22-29); Chloride 105 mmol/L (96-108); Cholesterol 174 mg/dL; Estimated Glomerular Filt Rate > 60; Glucose Random 86 mg/dL (60-115); HDL Cholesterol 54 mg/dL; Iron 42 mcg/dL (30-160); LDL Cholesterol Calculated 107 mg/dl; Percent Iron Saturation 14 % (15-50); Potassium 4.4 mmol/L (3.3-5.1); Sodium 140 mmol/L (135-145); Total Iron Binding Capacity 304 mcg/dL (228-428); Total Protein 6.8 g/dL (6.5-8.0); Triglycerides 69 mg/dL; Unsaturated Iron Binding 262 ug/dL
[2021-12-04 09:13] LABS: Ferritin 13 ng/mL (10-250); Insulin 7 uU/mL (2-29); TSH reflex Free T4 1.54 uIU/mL (0.32-4.0); Vitamin D 25-OH Total 56.8 ng/mL (>30)
[2021-12-04 09:33] LABS: Folate 19.5 ng/mL (> or = 4.0); Vitamin B12 958 pg/mL (200-900)
[2021-12-08 12:37] LABS: Calcium (PTHI) 9.4 mg/dL (8.6-10.2); PTHI 16 pg/mL (14-64)
[2021-12-08 13:01] LABS: Zinc 72 mcg/dL (60-130)
[2021-12-10 14:11] LABS: Vitamin A 50 mcg/dL (38-98)
[2021-12-10 18:51] LABS: Vitamin B1 35 nmol/L (8-30)
== END 2021-12-04 07:38 | disposition home or self-care (01) ==
LOC: HO.LAB 07:37
PROVIDERS: PCP Family Medicine; Visit Provider Physician Assistant
DX: E66.3 Overweight (principal); Z98.84 Bariatric surgery status
CPT/HCPCS: 36415; 80053; 80061; 82306; 82607; 82728; 82746; 83036; 83525; 83540; 83970; 84425; 84443; 84590; 84630; 85025; 86140

== ENCOUNTER → 2022-02-08 08:10 | Outpatient (BNVA) | payer OTHER, SELFPAY | PROVIDERS: PCP Family Medicine; Visit Provider Physician Assistant | DX: Z13.89 Encounter for screening for other disorder (principal) ==

== ENCOUNTER 2022-05-18 08:21 | Outpatient (REF) | payer OTHER, SELFPAY ==
[2022-05-18 08:45] LABS: MANUAL DIFF FLAG NO
[2022-05-18 09:33] LABS: Basophils Percent Auto 0.7 % (0-2); Eosinophils Absolute Auto 0.3 X10*3/uL (0.0-0.4); Eosinophils Percent Auto 6.3 % (0-4); Hematocrit 35.9 % (37.0-47.0); Hemoglobin 11.7 g/dl (12.0-16.0); Imm Gran Abs Auto 0.01 X10*3/uL (0.00-0.03); Imm Gran Pct Auto 0.2 % (0.0-0.4); Lymphocytes Percent Auto 43.5 % (20-40); Mean Corpuscular HGB Conc 32.6 g/dl (31.0-35.0); Mean Corpuscular Hemoglobin 29.9 pg (27.0-33.0); Mean Corpuscular Volume 91.8 fL (80.0-98.0); Mean Platelet Volume 11.6 fL (9.4-12.3); Monocytes Absolute Auto 0.4 X10*3/uL (0.1-1.2); Monocytes Percent Auto 9.8 % (2-11); Neutrophils Absolute Auto 1.8 x10*3/uL (2.0-8.3); Neutrophils Percent Auto 39.5 % (45-73); Platelet Count 230 X10*3/uL (160-400); Red Blood Count 3.91 X10*6/uL (4.20-5.50); Red Cell Distribution Width 13.6 % (11.0-16.0); White Blood Count 4.5 X10*3/uL (4.8-10.8)
[2022-05-18 10:11] LABS: Alanine Aminotransferase 24 U/L (0-31); Albumin Level 3.8 g/dL (3.5-5.0); Alkaline Phosphatase 53 U/L (39-117); Anion Gap 11 (12-20); Aspartate Amino Transferase 24 U/L (5-31); Bilirubin Total 0.4 mg/dL (0.0-1.0); Blood Urea Nitrogen 20 mg/dL (9-16); C Reactive Protein 0.14 mg/dL (< or = 0.50); Carbon Dioxide 24 mmol/L (22-29); Chloride 106 mmol/L (96-108); Cholesterol 165 mg/dL; Estimated Average Glucose 94 mg/dL; Estimated Glomerular Filt Rate > 60; Glucose Random 72 mg/dL (60-115); HDL Cholesterol 65 mg/dL; Hemoglobin A1c % 4.9 %; Iron 64 mcg/dL (30-160); LDL Cholesterol Calculated 87 mg/dl; Percent Iron Saturation 19 % (15-50); Potassium 4.2 mmol/L (3.3-5.1); Sodium 137 mmol/L (135-145); Total Iron Binding Capacity 343 mcg/dL (228-428); Total Protein 6.7 g/dL (6.5-8.0); Triglycerides 69 mg/dL; Unsaturated Iron Binding 279 ug/dL
[2022-05-18 10:18] LABS: Ferritin 9 ng/mL (10-250); Insulin 4 uU/mL (2-29); TSH reflex Free T4 1.32 uIU/mL (0.32-4.0); Vitamin D 25-OH Total 59.3 ng/mL (>30)
[2022-05-18 10:40] LABS: Folate > 20.0 ng/mL (> or = 4.0); Vitamin B12 962 pg/mL (200-900)
[2022-05-19 12:36] LABS: Calcium (PTHI) 9.2 mg/dL (8.6-10.2); PTHI 18 pg/mL (16-77)
[2022-05-23 18:12] LABS: Zinc 82 mcg/dL (60-130)
[2022-05-24 11:51] LABS: Vitamin B1 46 nmol/L (8-30)
[2022-05-24 20:53] LABS: Vitamin A 50 mcg/dL (38-98)
== END 2022-05-18 08:22 | disposition home or self-care (01) ==
LOC: HO.LAB 08:21
PROVIDERS: PCP Family Medicine; Visit Provider Physician Assistant Surgical
DX: E66.3 Overweight (principal); Z98.84 Bariatric surgery status
CPT/HCPCS: 36415; 80053; 80061; 82306; 82607; 82728; 82746; 83036; 83525; 83540; 83970; 84425; 84443; 84590; 84630; 85025; 86140; 97803

== ENCOUNTER → 2022-10-27 12:14 | Outpatient (BNVA) | payer OTHER, SELFPAY | PROVIDERS: PCP Family Medicine; Visit Provider Physician Assistant Surgical | DX: E66.3 Overweight (principal) ==

== ENCOUNTER 2022-11-30 08:18 | Outpatient (REF) | payer OTHER, SELFPAY ==
[2022-11-30 08:39] LABS: MANUAL DIFF FLAG NO
[2022-11-30 09:24] LABS: Basophils Percent Auto 0.9 % (0-2); Eosinophils Absolute Auto 0.3 X10*3/uL (0.0-0.4); Eosinophils Percent Auto 6.4 % (0-4); Hematocrit 38.4 % (37.0-47.0); Hemoglobin 12.7 g/dl (12.0-16.0); Imm Gran Abs Auto 0.01 X10*3/uL (0.00-0.03); Imm Gran Pct Auto 0.2 % (0.0-0.4); Lymphocytes Absolute Auto 2.3 X10*3/uL (1.2-4.9); Lymphocytes Percent Auto 48.1 % (20-40); Mean Corpuscular HGB Conc 33.1 g/dl (31.0-35.0); Mean Corpuscular Hemoglobin 30.5 pg (27.0-33.0); Mean Corpuscular Volume 92.1 fL (80.0-98.0); Mean Platelet Volume 11.6 fL (9.4-12.3); Monocytes Absolute Auto 0.4 X10*3/uL (0.1-1.2); Monocytes Percent Auto 8.1 % (2-11); Neutrophils Absolute Auto 1.7 x10*3/uL (2.0-8.3); Neutrophils Percent Auto 36.3 % (45-73); Platelet Count 227 X10*3/uL (160-400); Red Blood Count 4.17 X10*6/uL (4.20-5.50); Red Cell Distribution Width 14.1 % (11.0-16.0); White Blood Count 4.7 X10*3/uL (4.8-10.8)
[2022-11-30 10:00] LABS: Estimated Average Glucose 94 mg/dL; Hemoglobin A1c % 4.9 %
[2022-11-30 10:40] LABS: Alanine Aminotransferase 36 U/L (0-31); Albumin Level 3.7 g/dL (3.5-5.0); Alkaline Phosphatase 58 U/L (39-117); Anion Gap 11 (12-20); Aspartate Amino Transferase 28 U/L (5-31); Bilirubin Total 0.4 mg/dL (0.0-1.0); Blood Urea Nitrogen 19 mg/dL (9-16); C Reactive Protein 0.11 mg/dL (< or = 0.50); Calcium 9.3 mg/dL (8.4-10.2); Carbon Dioxide 27 mmol/L (22-29); Chloride 105 mmol/L (96-108); Cholesterol 172 mg/dL; Estimated Glomerular Filt Rate > 60; Glucose Random 79 mg/dL (60-115); HDL Cholesterol 51 mg/dL; Iron 121 mcg/dL (30-160); LDL Cholesterol Calculated 108 mg/dl; Percent Iron Saturation 47 % (15-50); Potassium 4.6 mmol/L (3.3-5.1); Sodium 138 mmol/L (135-145); Total Iron Binding Capacity 256 mcg/dL (228-428); Total Protein 6.6 g/dL (6.5-8.0); Triglycerides 65 mg/dL; Unsaturated Iron Binding 135 ug/dL
[2022-11-30 10:45] LABS: Ferritin 19 ng/mL (10-250); Insulin 4 uU/mL (2-29); TSH reflex Free T4 1.22 uIU/mL (0.32-4.0); Vitamin D 25-OH Total 60.2 ng/mL (>30)
[2022-11-30 10:50] LABS: Folate 18.8 ng/mL (> or = 4.0); Vitamin B12 1347 pg/mL (200-900)
[2022-12-01 11:38] LABS: Calcium (PTHI) 9.3 mg/dL (8.6-10.2); PTHI 28 pg/mL (16-77)
[2022-12-02 20:58] LABS: Zinc 122 mcg/dL (60-130)
[2022-12-03 22:23] LABS: Vitamin A 49 mcg/dL (38-98)
[2022-12-04 17:28] LABS: Vitamin B1 51 nmol/L (8-30)
== END 2022-11-30 08:19 | disposition home or self-care (01) ==
LOC: HO.LAB 08:18
PROVIDERS: Visit Provider Physician Assistant Surgical
DX: Z98.84 Bariatric surgery status (principal)
CPT/HCPCS: 36415; 80053; 80061; 82306; 82607; 82728; 82746; 83036; 83525; 83540; 83970; 84425; 84443; 84590; 84630; 85025; 86140

== ENCOUNTER 2023-10-20 08:28 | Outpatient (REF) | payer OTHER, SELFPAY ==
[2023-10-20 09:03] LABS: MANUAL DIFF FLAG NO
[2023-10-20 09:48] LABS: Basophils Absolute Auto 0.1 X10*3/uL (0.0-0.2); Basophils Percent Auto 1.2 % (0-2); Eosinophils Absolute Auto 0.4 X10*3/uL (0.0-0.4); Eosinophils Percent Auto 9.4 % (0-4); Hematocrit 39.9 % (37.0-47.0); Hemoglobin 13.2 g/dl (12.0-16.0); Lymphocytes Absolute Auto 1.8 X10*3/uL (1.2-4.9); Lymphocytes Percent Auto 43.6 % (20-40); Mean Corpuscular HGB Conc 33.1 g/dl (31.0-35.0); Mean Corpuscular Hemoglobin 31.4 pg (27.0-33.0); Mean Corpuscular Volume 94.8 fL (80.0-98.0); Mean Platelet Volume 11.4 fL (9.4-12.3); Monocytes Absolute Auto 0.4 X10*3/uL (0.1-1.2); Monocytes Percent Auto 9.7 % (2-11); Neutrophils Absolute Auto 1.5 x10*3/uL (2.0-8.3); Neutrophils Percent Auto 36.1 % (45-73); Platelet Count 225 X10*3/uL (160-400); Red Blood Count 4.21 X10*6/uL (4.20-5.50); Red Cell Distribution Width 12.3 % (11.0-16.0)
[2023-10-20 10:11] LABS: Estimated Average Glucose 97 mg/dL
[2023-10-20 10:26] LABS: Alanine Aminotransferase 37 U/L (0-31); Albumin Level 3.9 g/dL (3.5-5.0); Alkaline Phosphatase 63 U/L (39-117); Anion Gap 11 (12-20); Aspartate Amino Transferase 26 U/L (5-31); Bilirubin Total 0.4 mg/dL (0.0-1.0); Blood Urea Nitrogen 17 mg/dL (9-16); C Reactive Protein 0.24 mg/dL (< or = 0.50); Calcium 9.3 mg/dL (8.4-10.2); Carbon Dioxide 28 mmol/L (22-29); Chloride 102 mmol/L (96-108); Cholesterol 189 mg/dL (<200); Estimated Glomerular Filt Rate > 60; Glucose Random 83 mg/dL (60-115); HDL Cholesterol 70 mg/dL (>40); Iron 86 mcg/dL (30-160); LDL Cholesterol Calculated 105 mg/dL (<100); Percent Iron Saturation 33 % (15-50); Potassium 4.4 mmol/L (3.3-5.1); Sodium 137 mmol/L (135-145); Total Iron Binding Capacity 261 mcg/dL (228-428); Total Protein 7.1 g/dL (6.5-8.0); Triglycerides 72 mg/dL (<150); Unsaturated Iron Binding 175 ug/dL
[2023-10-20 10:34] LABS: Ferritin 15 ng/mL (10-250); Insulin 4 uU/mL (2-29); TSH reflex Free T4 1.26 uIU/mL (0.32-4.0); Vitamin D 25-OH Total 61.3 ng/mL (>30)
[2023-10-20 10:48] LABS: Folate 14.7 ng/mL (> or = 4.0); Vitamin B12 1546 pg/mL (200-900)
[2023-10-23 17:18] LABS: Zinc 80 mcg/dL (60-130)
[2023-10-25 03:38] LABS: Vitamin A 53 mcg/dL (38-98)
[2023-10-28 15:58] LABS: Vitamin B1 40 nmol/L (8-30)
== END 2023-10-20 08:29 | disposition home or self-care (01) ==
LOC: HO.LAB 08:28
PROVIDERS: PCP Family Medicine; Visit Provider Physician Assistant Surgical
DX: E66.9 Obesity, unspecified (principal); Z71.3 Dietary counseling and surveillance; Z98.84 Bariatric surgery status; Z68.32 Body mass index [BMI] 32.0-32.9, adult; Z79.899 Other long term (current) drug therapy
CPT/HCPCS: 36415; 80053; 80061; 82306; 82607; 82728; 82746; 83036; 83525; 83540; 84425; 84443; 84590; 84630; 85025; 86140

== ENCOUNTER 2023-10-20 09:29 | Outpatient (AMB) | payer OTHER, SELFPAY ==
--- NOTE | 2023-10-20 09:38 | MHC.OFFVISWM ---
Intake VS Expanded 10/20/23 09:51 BP 134/76 Blood Pressure Location Rt brachial Blood Pressure Position Sitting Pulse 61 Pulse Source Pulse Oximeter Temp 97.3 F Temperature Source Tympanic Pulse Oximetry 100 Oxygen Delivery Method Room Air Height 5 ft 1 in Weight 169 lb 3.2 oz BMI 32.0 Body Fat % 35.5 Body Fat Mass 60.0 Fat Free Mass 109.2 Visceral Fat Rating 8.0 Body Water % 45.9 Body Water Mass 77.6 Muscle Mass/Score 103.6 Basal Metabolic Rate/Score 1,487 Intake Visit Reasons: (OV) PO LSG 04/23/21 Allergies No Known Allergies Allergy (Verified 10/20/23 09:40) Medication List - Last Reconciled 10/20/23 by PJ Guevara albuterol sulfate 90 mcg/actuation 1 puff PO Q4-6H PRN bupropion HCl 150 mg PO DAILY calcium citrate-vitamin D3 315 mg-5 mcg (200 unit) (Calcium Citrate + D) 1 tab PO BID cetirizine (Zyrtec) 10 mg PO DAILY PRN escitalopram oxalate 20 mg PO DAILY levothyroxine 50 mcg PO DAILY tagnbbretaoq-bum-fyjh-FA-vit K 45 mg iron- 800 mcg-120 mcg (Bariatric Multivitamins) caps PO simethicone (Gas Relief (simethicone)) 80 mg PO TID-QID PRN HPI HPI Comments History of Present Illness Details This?is a?48?yo female who is s/p LSG 04/23/2021. Presents for 2.5 year post op visit. Weight at last visit on 10/27/2022 was 151 pounds with a BMI of 28.5, weight today is 169.2 pounds, representing an 18.2 pound weight gain with a BMI today of 32.? No complaints of nausea, emesis, abdominal pain or reflux, or constipation. Pt reports starting a new job in July which changed her routine. 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 Admits to some stress eating. Present meal plan includes: Breakfast- Pure Protein 3/4 scoop with 12oz almond milk midmorning snack- 1/4 oatmeal with 1Tbsp judd and berries or scrambled egg with whole wheat yi muffin/lavash bread 1pm- 1oz reduced fat cheese, sesame thin crackers, fruit/veg, or will make a meal from bariatric cookbook (200cal, 10-15g protein) 3pm- bar Dinner- 4oz protein, 1/2c veg, 1/3c whole grain All meals last 20 - 30 minutes and does not drink and eat at the same time. 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 HTN: had elevated BPs; was never treated with meds, now resolved HLD: n/a DM: n/a EARL: n/a GERD: pantoprazole- taking for ppx, no reflux sx Postop complications: none PFSH Medical History (Updated 08/10/21 @ 07:54 by Genaro Angel MD) GERD (gastroesophageal reflux disease) Steatosis, liver Obesity COVID-19 vaccine series completed Environmental and seasonal allergies Seasonal allergies Hypothyroidism Hx of complete atrioventricular block BMI 36.0-36.9,adult Constipation BMI 37.0-37.9, adult BMI 38.0-38.9,adult BMI 39.0-39.9,adult Obesity Vitamin D deficiency Abnormal EKG Sciatica Anxiety Depression Hypertension Asthma Morbid obesity Surgical History (Updated 10/20/23 @ 09:42 by Rosemary Holley [facility]) Hx of laparoscopic partial gastrectomy Hx of wisdom tooth extraction History of permanent cardiac pacemaker placement Family History Mother No problems noted. Father Bladder cancer Brother No problems noted. Daughter No problems noted. Social History (Updated 04/28/22 @ 13:09 by Ya Connors [facility]) Are you a primary care information associate to a significant other at home: No Do you presently have visiting nurse or other home services: No Alcohol intake: current Alcohol intake frequency: holidays/special occasions only Patient Tobacco Use Status: Never used Tobacco service: No Current occupational status: employed Physical Exam Const General: cooperative, comfortable and no acute distress Orientation/consciousness: patient oriented x3 GI Other: soft, nontender, nondistended, incisions well healed, no hernia, no masses Neuro General: patient oriented x3 Assessment & Plan Assessment & Plan (1) Obesity: Code(s): E66.9 - Obesity, unspecified (2) S/P laparoscopic sleeve gastrectomy: Code(s): Z98.84 - Bariatric surgery status Plan New meal plan: 8-10am PP shake with 1/2 scoop in 8oz unsweetened almond milk 12-2pm same shake 3-5pm ZP or Blue Grass bar 6pm dinner- 5 forks protein, 5 forks salad/veg 7-9pm bar Pt needs to increase exercise; aim for 2000 calories per week burned. Had her labs done today; will review when results come in. RTC 6 weeks. Pt will text me weekly with weights for accountability. Patient is obese and is not considered stable at this time. I spent a total of 30 minutes reviewing/updating records, examining the patient and counseling the patient on weight management as detailed above. Medications: New simethicone (Gas Relief (simethicone)) 80 mg PO TID-QID PRN 90 tabs 3RF abdominal distention Coding Level of Care Code Est Pt Level 4 (88061) Diagnoses Obesity E66.9 S/P laparoscopic sleeve gastrectomy Z98.84
[2023-10-20 09:51] VITALS: BP 134/76; PULSE 61; TEMP 36.3; O2SAT 100; BMI 32.0
== END 2023-10-20 10:28 | disposition home or self-care (01) ==
PROVIDERS: PCP Family Medicine; Visit Provider Physician Assistant Surgical
DX: E66.9 Obesity, unspecified (principal); Z68.32 Body mass index [BMI] 32.0-32.9, adult; Z90.3 Acquired absence of stomach [part of]; Z98.84 Bariatric surgery status
CPT/HCPCS: 99213

== ENCOUNTER 2023-12-22 11:39 | Outpatient (AMB) | payer OTHER, SELFPAY ==
--- NOTE | 2023-12-22 11:28 | A.OFFVIS_ITS ---
Intake Intake Visit Reasons: (telephone) PO LSG 04/23/21 Allergies No Known Allergies Allergy (Verified 10/20/23 09:40) Medication List - Last Reconciled 12/22/23 by PJ Guevara albuterol sulfate 90 mcg/actuation 1 puff PO Q4-6H PRN bupropion HCl 150 mg PO DAILY calcium citrate-vitamin D3 315 mg-5 mcg (200 unit) (Calcium Citrate + D) 1 tab PO BID cetirizine (Zyrtec) 10 mg PO DAILY PRN escitalopram oxalate 20 mg PO DAILY levothyroxine 50 mcg PO DAILY wxafzmaneyyv-uat-yngq-FA-vit K 45 mg iron- 800 mcg-120 mcg (Bariatric Multivitamins) caps PO simethicone (Gas Relief (simethicone)) 80 mg PO TID-QID PRN HPI HPI Comments History of Present Illness Details This?is a?48?yo female who is s/p LSG 04/23/2021. Presents for 2 year 8 month post op visit. Weight at last visit on 10/20/2023 was 169.2 pounds with a BMI of 32, weight today is 168.8 pounds, representing a 0.4 pound weight loss with a BMI today of 31.5.? No complaints of nausea, emesis, abdominal pain or reflux, or constipation. Present meal plan given at last visit includes: 8-10am PP shake with 1/2 scoop in 8oz un sweetened almond milk 12-2pm same shake 3-5pm ZP or [place] bar 6pm dinner- 5 forks protein, 5 forks elizabeth ad/veg 7-9pm bar Pt reports difficulty managing what she is eating around dinnertime. Feels a lot more job stress, struggling with emotional eating. Exercise routine includes: personal training 2x; hiking with family; running lifting weights more and has signed up for a powerlifting competition [facility] Medical History (Updated 08/10/21 @ 07:54 by Genaro Angel MD) GERD (gastroesophageal reflux disease) Steatosis, liver Obesity COVID-19 vaccine series completed Environmental and seasonal allergies Seasonal allergies Hypothyroidism Hx of complete atrioventricular block BMI 36.0-36.9,adult Constipation BMI 37.0-37.9, adult BMI 38.0-38.9,adult BMI 39.0-39.9,adult Obesity Vitamin D deficiency Abnormal EKG Sciatica Anxiety Depression Hypertension Asthma Morbid obesity Surgical History (Updated 10/20/23 @ 09:42 by Rosemary Holley [facility]) Hx of laparoscopic partial gastrectomy Hx of wisdom tooth extraction History of permanent cardiac pacemaker placement Family History Mother No problems noted. Father Bladder cancer Brother No problems noted. Daughter No problems noted. Social History (Updated 04/28/22 @ 13:09 by Ya Connors [facility]) Are you a primary day care home provider to a significant other at home: No Do you presently have visiting nurse or other home services: No Alcohol intake: current Alcohol intake frequency: holidays/special occasions only Patient Tobacco Use Status: Never used Tobacco service: No Current occupational status: employed Assessment & Plan Assessment & Plan (1) Obesity: Code(s): E66.9 - Obesity, unspecified (2) S/P laparoscopic sleeve gastrectomy: Code(s): Z98.84 - Bariatric surgery status Plan Advised pt to choose a snack high in protein if she feels the urge to eat while prepping dinner. Congratulated her on her weightlifting progress and discussed goal setting as an effective means to stay on track. Offered BH appt if pt feels she is struggling with emotional eating, pt aware we have that resource if needed. RTC 2 months per pt preference. Patient is obese and is not considered stable at this time. I spent a total of 30 minutes reviewing/updating records, examining the patient and counseling the patient on weight management as detailed above. Coding Level of Care Code Tele Est Pt Level 4 (67566) Diagnoses Obesity E66.9 S/P laparoscopic sleeve gastrectomy Z98.84
== END 2023-12-22 11:55 | disposition home or self-care (01) ==
LOC: HO.HBS 11:39
PROVIDERS: PCP Family Medicine; Visit Provider Physician Assistant Surgical
DX: E66.9 Obesity, unspecified (principal); Z98.84 Bariatric surgery status
CPT/HCPCS: 99214

== ENCOUNTER → 2023-12-22 11:39 | Outpatient (BNVA) | payer OTHER, SELFPAY | PROVIDERS: PCP Family Medicine; Visit Provider Physician Assistant Surgical ==

== ENCOUNTER 2024-04-25 14:36 | Outpatient (AMB) | payer OTHER, SELFPAY ==
--- NOTE | 2024-04-25 14:45 | A.OFFVIS_ITS ---
VS Expanded 04/25/24 14:51 BP 133/85 Blood Pressure Location Rt brachial Blood Pressure Position Sitting Pulse 65 Pulse Source Pulse Oximeter Temp 97.4 F Temperature Source Temporal Artery Scan Pulse Oximetry 96 Oxygen Delivery Method Room Air Height 5 ft 1 in Weight 165 lb 9.6 oz BMI 31.3 Body Fat % 31.0 Body Fat Mass 51.4 Fat Free Mass 114.2 Visceral Fat Rating 7.0 Body Water % 49.1 Body Water Mass 81.4 Muscle Mass/Score 108.4 Basal Metabolic Rate/Score 1,534 Intake Visit Reasons: (OV) PO LSG 04/23/21 Allergies No Known Allergies Allergy (Verified 04/25/24 14:48) Medication List - Last Reconciled 04/25/24 by PJ Guevara albuterol sulfate 90 mcg/actuation 1 puff PO Q4-6H PRN bupropion HCl XL 150 mg PO DAILY calcium citrate-vitamin D3 315 mg-5 mcg (200 unit) (Calcium Citrate + D) 1 tab PO BID cetirizine (Zyrtec) 10 mg PO DAILY PRN escitalopram oxalate 20 mg PO DAILY levothyroxine 50 mcg PO DAILY begutgpgyhuw-cec-hxiu-FA-vit K 45 mg iron- 800 mcg-120 mcg (Bariatric Multivitamins) caps PO simethicone (Gas Relief (simethicone)) 80 mg PO TID-QID PRN HPI Comments Details: This?is a?48?yo female who is s/p LSG 04/23/2021. Presents for 3 year post op visit. Weight loss of 3.2lbs since last OV.? No complaints of nausea, emesis, abdominal pain or reflux, or constipation. Started Contrave recently about 2 months ago which has helped her evening cravings, but still having some evening snacking. Enjoying strength training and signed up for a powerlifting competition. Present meal plan includes: 8-10am PP shake with 1/2 scoop in 8oz unsweetened almond milk 12-2pm same shake 3-5pm ZP or [place] bar 6pm dinner- 5 forks protein, 5 forks salad/veg 7-9pm bar taking MVI Exercise routine includes: personal training 2x; hiking with family; running lifting weights more and has signed up for a powerlifting competition [facility] Medical History (Updated 08/10/21 @ 07:54 by Genaro Angel MD) GERD (gastroesophageal reflux disease) Steatosis, liver Obesity COVID-19 vaccine series completed Environmental and seasonal allergies Seasonal allergies Hypothyroidism Hx of complete atrioventricular block BMI 36.0-36.9,adult Constipation BMI 37.0-37.9, adult BMI 38.0-38.9,adult BMI 39.0-39.9,adult Obesity Vitamin D deficiency Abnormal EKG Sciatica Anxiety Depression Hypertension Asthma Morbid obesity Surgical History Hx of laparoscopic partial gastrectomy Hx of wisdom tooth extraction History of permanent cardiac pacemaker placement Family History Mother No problems noted. Father Bladder cancer Brother No problems noted. Daughter No problems noted. Social History Are you a primary health care law specialist to a significant other at home: No Do you presently have visiting nurse or other home services: No Alcohol intake: current Alcohol intake frequency: holidays/special occasions only Patient Tobacco Use Status: Never used Tobacco service: No Current occupational status: employed Physical Exam Vital Signs: Last Vital Signs Temp 97.4 F 04/25/24 14:51 Pulse 65 04/25/24 14:51 BP 133/85 04/25/24 14:51 Pulse Ox 96 04/25/24 14:51 Oxygen Delivery Method Room Air 04/25/24 14:51 BMI result Body Mass Index 31.3 Assessment & Plan Assessment & Plan (1) Obesity: Code(s): E66.9 - Obesity, unspecified Category: Medical (2) S/P laparoscopic sleeve gastrectomy: Code(s): Z98.84 - Bariatric surgery status Category: Medical Plan Pt understands that incorporating more regular foods into her meal plan will likely result in slower pace of weight loss. She understands that bars/shakes plus one meal is ideal but felt less energy when her plan was more restrictive. Recommended making sure she gets enough protein during her day to prevent snacking/eating in the evening. Reviewed body composition, healthy body fat % and high muscle mass. RTC 6 months. Patient is obese and is not considered stable at this time. I spent a total of 30 minutes reviewing/updating records, examining the patient and counseling the patient on weight management as detailed above.
[2024-04-25 14:51] VITALS: BP 133/85; PULSE 65; TEMP 36.3; O2SAT 96; BMI 31.3
== END 2024-04-25 15:18 | disposition home or self-care (01) ==
PROVIDERS: PCP Family Medicine; Visit Provider Physician Assistant Surgical
DX: E66.9 Obesity, unspecified (principal); Z68.31 Body mass index [BMI] 31.0-31.9, adult; Z90.3 Acquired absence of stomach [part of]; Z98.84 Bariatric surgery status
CPT/HCPCS: 99214; G2211

== ENCOUNTER → 2024-04-25 14:36 | Outpatient (BNVA) | payer OTHER, SELFPAY | PROVIDERS: PCP Family Medicine; Visit Provider Physician Assistant Surgical ==

== ENCOUNTER 2025-07-29 09:27 | Outpatient (AMB) | payer OTHER, SELFPAY ==
--- NOTE | 2025-07-29 09:11 | A.OFFVIS_ITS ---
VS Expanded 07/29/25 09:13 Height 5 ft 1 in Weight 168 lb BMI 31.7 Intake Visit Reasons: (TV) PO LSG 04/23/21 Allergies No Known Allergies Allergy (Verified 04/25/24 14:48) Medication List - Last Reconciled 07/29/25 by PJ Guevara albuterol sulfate 90 mcg/actuation 1 puff PO Q4-6H PRN bupropion HCl XL 150 mg PO DAILY calcium citrate-vitamin D3 315 mg-5 mcg (200 unit) (Calcium Citrate + D) 1 tab PO BID cetirizine (Zyrtec) 10 mg PO DAILY PRN escitalopram oxalate 20 mg PO DAILY levothyroxine 50 mcg PO DAILY yqbjscmwqgyo-czw-yivc-FA-vit K 45 mg iron- 800 mcg-120 mcg (Bariatric Multivitamins) caps PO simethicone (Gas Relief (simethicone)) 80 mg PO TID-QID PRN tirzepatide (weight loss) (Zepbound) 5 mg subcut QWEEK HPI Comments Details: This?is a?49?yo female who is s/p LSG 04/23/2021. Presents for 4 year 3 month post op visit. Weight gain of 3.4lbs since last OV in April 2024.? Did get up to a higher weight previously. No complaints of nausea, emesis, abdominal pain or reflux, or constipation. Reports some health issues causing stress eating. Was found to have a wire for her pacemaker not working for her first degree heart block. Had a procedure to correct this but for 3-4 months after had less physical activity. Was started on Zepbound by her PCP ([facility]). She may have to change to Wegovy due to insurance. Present meal plan includes: my eating pattern has been a bar midmorning, a macanese/japanese yogurt with protein granola in afternoon, dinner of protein and veg thinks she is getting 50-55g per day taking MVI Exercise routine includes: personal training 2x; hiking with family; running, lifting weights [facility] Medical History (Updated 08/10/21 @ 07:54 by Genaro Angel MD) GERD (gastroesophageal reflux disease) Steatosis, liver Obesity COVID-19 vaccine series completed Environmental and seasonal allergies Seasonal allergies Hypothyroidism Hx of complete atrioventricular block BMI 36.0-36.9,adult Constipation BMI 37.0-37.9, adult BMI 38.0-38.9,adult BMI 39.0-39.9,adult Obesity Vitamin D deficiency Abnormal EKG Sciatica Anxiety Depression Hypertension Asthma Morbid obesity Surgical History Hx of laparoscopic partial gastrectomy Hx of wisdom tooth extraction History of permanent cardiac pacemaker placement Family History Mother No problems noted. Father Bladder cancer Brother No problems noted. Daughter No problems noted. Social History Are you a primary dialysis patient care technician to a significant other at home: No Do you presently have visiting nurse or other home services: No Alcohol intake: current Alcohol intake frequency: holidays/special occasions only Patient Tobacco Use Status: Never used Tobacco service: No Current occupational status: employed Telehealth Telehealth Telehealth Platform: Telephone Location of provider rendering services: practice address Location of patient: other Patient Identification confirmed using: Name, : Yes Telehealth method: voice only Patient verbally consented to treatment: Yes Patient verbally consented to billing insurance company: Yes Patient informed of any privacy concerns related to visit: Yes Minutes spent on Phone/Video with Pt.: 16 Assessment & Plan Assessment & Plan (1) Obesity: Code(s): E66.9 - Obesity, unspecified Category: Medical (2) S/P laparoscopic sleeve gastrectomy: Code(s): Z98.84 - Bariatric surgery status Category: Surgical Plan Sent SetMeUp sonam info and encouraged pt to download to create a better meal plan. She appears to be to low on protein and we discussed the risks of that while on GLP1s. Labs ordered. RTC 6 mo. Orders: Orders Vitamin D 25-OH Total Today E66.9 - Obesity, unspecified, Z98.84 - Bariatric surgery status TSH reflex Free T4 Today E66.9 - Obesity, unspecified, Z98.84 - Bariatric surgery status C Reactive Protein Today E66.9 - Obesity, unspecified, Z98.84 - Bariatric surgery status Vitamin A Today E66.9 - Obesity, unspecified, Z98.84 - Bariatric surgery status Zinc Today E66.9 - Obesity, unspecified, Z98.84 - Bariatric surgery status Complete Blood Count Auto Diff Today E66.9 - Obesity, unspecified, Z98.84 - Bariatric surgery status Lipid Panel Today E66.9 - Obesity, unspecified, Z98.84 - Bariatric surgery s tatus Insulin Today E66.9 - Obesity, unspecified, Z98.84 - Bariatric surgery status Ferritin Today E66.9 - Obesity, unspecified, Z98.84 - Bariatric surgery status Vitamin B1 Today E66.9 - Obesity, unspecified, Z98.84 - Bariatric surgery status Vitamin B12 and Folate Today E66.9 - Obesity, unspecified, Z98.84 - Bariatric surgery status Comprehensive Met. Panel Today E66.9 - Obesity, unspecified, Z98.84 - Bariatric surgery status IRON PROFILE Today E66.9 - Obesity, unspecified, Z98.84 - Bariatric surgery status Hemoglobin A1c Today E66.9 - Obesity, unspecified, Z98.84 - Bariatric surgery status
[2025-07-29 09:13] VITALS: BMI 31.7
--- OUTSIDE RECORDS SUMMARY | 2025-07-29 11:08 | XMS_ITS | Encounter Summary ---
Author Organization [facility] Address [address] [place] [address] [place] [address] Phone Care Team Providers Care Tire Shop Manager Name Role Phone Rosemary Alexandra MD Primary Care Provider [phone] Rosemary Alexandra MD Primary Care Provider [phone] Encounter Details Date Type Department Care Team (Late Contact Info) Description 08/26/2023 Procedure Pass [facility] Endoscopy Admitting Dept Virtual Department [address] [place] [address] Social History Tobacco Use Types Packs/Day Years Used Date Smoking Tobacco: Never Smokeless Tobacco: Never Alcohol Use Standard Drinks/Week Comments No 0 (1 standard drink = 0.6 oz pur e alcohol) Education Answer Date Recorded Are you interested in more education? Not on arianne e 03/04/2023 Are you concerned about learning? Not on file 03/04/2023 No 03/04/2023 No 03/04/2023 Digital Access Answer Date Recorded No 04/02/2023 No 04/02/2023 Reliable internet access at home? Not on file 04/02/2023 Device with a working camera? 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 Not on file Not on file Not on file documented as of this encounter Plan of Treatment Upcoming Encounters Date Type Department Care Team (Late Contact Info) Description 07/16/2026 4:00 PM EDT Office Visit [facility] [address] Floor, [address] [place] [address] Deshawn Vital MD [address] [place] [address] documented as of this encounter Visit Diagnoses Not on filedocumented in this encounter Care Teams Tire Shop Manager Relationship Specialty Start Date End Date Rosemary Alexandra MD PCP - General Family Medicine 01/15/19 11/20/24 Rosemary Alexandra MD [address] [place] [address] PCP - General Family Medicine 11/21/24 documented as of this encounter Additional Source Comments The information contained in this document represents components of the legal health record. It is not the complete legal health record.[facility]
--- OUTSIDE RECORDS SUMMARY | 2025-07-29 11:08 | XMS_ITS | Encounter Summary ---
Author Organization [facility] Address [address] [place] [address] [address] [place] [address] Phone Care Team Providers Care Trolley Coach Driver Name Role Phone Rosemary Alexandra MD Primary Care Provider [phone] Rosemary Alexandra MD Primary Care Provider + [phone] Encounter Details Date Type Department Care Team (Late st Contact Info) Description 02/25/2021 Procedure Pass Non-Invasive Cardiology [address] [place] [address] Social History Tobacco Use Types Packs/Day Years Used Date Smoking Tobacco: Never Smokeless Tobacco: Never Alcohol Use Standard Drinks/Week Comments No 0 (1 standard drink = 0.6 oz pur e alcohol) Comments No Sex and Gender Information Value Date Recorded Sex Assigned at Female 01/26/2019 7:36 PM EDT Legal Sex Female 10:06 AM EST Gender Identity Female 01/26/2019 7:36 PM EDT Sexual Orientation Not on file 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 on file Not on file Not on file documented as of this encounter Plan of Treatment Upcoming Encounters Date Type Department Care Team (Late st Contact Info) Description 07/16/2026 4:00 PM EDT Office Visit [facility] [address] [facility] [address]rd Floor, [address] [place] [address] Deshawn Vital MD [address] [place] [address] documented as of this encounter Visit Diagnoses Not on filedocumented in this encounter Care Teams Trolley Coach Driver Relationship Specialty Start Date End Date Rosemary Alexandra MD [email or web address] PCP - General Family Medicine 01/15/19 11/20/24 Rosemary Alexandra MD [address] [place] [address] PCP - General Family Medicine 11/21/24 documented as of this encounter Additional Source Comments The information contained in this document represents components of the legal health record. It is not the complete legal health record.[facility]
--- OUTSIDE RECORDS SUMMARY | 2025-07-29 11:08 | XMS_ITS | Encounter Summary ---
Author Organization [facility] Address [address] [place] [address] [place] [address] Phone Care Team Providers Care Office Manager Name Role Phone Rosemayr Alexandra MD Primary Care Provider [phone] Unknown, Unknown Primary Care Provider Rosemary Cedeno MD Primary Care Provider [phone] Rosemary Alexandra MD Primary Care Provider [phone]- [phone] Encounter Details Date Type Department Care Team (Late st Contact Info) Description 12/26/2018 Ancillary Orders [facility] [address] [place] [address] Rosalino Faulkner MD [address] [place] [address] [place] [phone] [email or web address] Social History Tobacco Use Types Packs/Day Years Used Date Smoking Tobacco: Never Smokeless Tobacco: Never Alcohol Use Standard Drinks/Week Comments No 0 (1 standard drink = 0.6 oz pur e alcohol) Comments Yes Sex and Gender Information Value Date Recorded Sex Assigned at Female 01/26/2019 7:36 PM EDT Legal Sex Female 10:06 AM EST Gender Identity Female 01/26/2019 7:36 PM EDT Sexual Orientation Not on file 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 Not on file Not on file Not on file documented as of this encounter Plan of Treatment Upcoming Encounters Date Type Department Care Team (Late st Contact Info) Description 07/16/2026 4:00 PM EDT Office Visit [facility] [address] [place] [address] [address], [address] [place] [address] Deshawn Vital MD [address] [place] [address] documented as of this encounter Visit Diagnoses Not on filedocumented in this encounter Care Teams Office Manager Relationship Specialty Start Date End Date Rosemary Alexandra MD PCP - General Family Medicine 11/15/18 01/10/19 Unknown, Unknown, MD PCP - General 01/11/19 01/14/19 Rosemary Alexandra MD PCP - General Family Medicine 01/15/19 11/20/24 Rosemary Alexandra MD [address] [place] [address] PCP - General Family Medicine 11/21/24 documented as of this encounter Additional Source Comments The information contained in this document represents components of the legal health record. It is not the complete legal health record.[facility]
--- OUTSIDE RECORDS SUMMARY | 2025-07-29 11:08 | XMS_ITS | Encounter Summary ---
Author Organization [facility] Address [address] [facility] [address] [place] [phone] Phone Care Team Providers Care Operations Research Director Name Role Phone Rosemary Alexandra MD Primary Care Provider Encounter Details Date Type Department Care Team (Late st Contact Info) Description 11/29/2024 Procedure Pass [facility] [address] [place] [address] Social History Tobacco Use Types Packs/Day Years [...] with a working camera? Not on file Intimate Partner Violence Answer Date R ecorded Are you denied basic needs s uch as food, clothing, or medical care? No 11/29/2024 In the past 12 months have y ou been in a relationship with a person who hurts, threatens, or tries to control you? No 11/29/2024 Are you denied basic needs s uch as food, clothing, or medical care? No 11/29/2024 In the past 12 months have y ou been in a relationship with a person who hurts, threatens, or tries to control you? 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 Wish to be (Past 1 Month) No 025 8:07 PM Almaz Palacio RN 2. Non-Specific Active Suici jeannette Thoughts (Past 1 Month) No 11/29/2024 8:07 PM Almaz Palacio RN 6. Suicidal Behavior (Lifetime) No 8:07 PM Almaz Palacio RN documented as of this encounter Plan of Treatment Upcoming Encounters Date Type Department Care Team (Late st Contact Info) Description 07/16/2026 4:00 PM EDT Office Visit [facility] [address] [place] [address] [address]rd Floor, [address] [place] [address] Deshawn Vital MD [address] [place] [address] documented as of this encounter Visit Diagnoses Not on filedocumented in this encounter Care Teams Operations Research Director Relationship Specialty Start Date End Date Rosemary Alexandra MD [address] [place] [address] PCP - General Family Medicine 11/21/24 documented as of this encounter Additional Source Comments The information contained in this document represents components of the legal health record. It is not the complete legal health record.[facility]
--- OUTSIDE RECORDS SUMMARY | 2025-07-29 11:08 | XMS_ITS | Encounter Summary ---
Author Organization 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 Not on file Not on file Not on file documented as of this encounter Plan of Treatment Upcoming Encounters Date Type Department Care Team (Late st Contact Info) Description 07/16/2026 4:00 PM EDT Office Visit [facility] [address] [facility] [address]rd Floor, [address] [place] [address] Deshawn Vital MD [address] [place] [address] documented as of this encounter Visit Diagnoses Not on filedocumented in this encounter Care Teams Personal Security Specialist Relationship Specialty Start Date End Date Rosemary Alexandra MD [email or web address] PCP - General Family Medicine 01/15/19 11/20/24 Rosemary Alexandra MD [address] [place] [address] PCP - General Family Medicine 11/21/24 documented as of this encounter Additional Source Comments The information contained in this document represents components of the legal health record. It is not the complete legal health record.[facility]
--- OUTSIDE RECORDS SUMMARY | 2025-07-29 11:08 | XMS_ITS | Clinical Summary ---
Author Organization [facility] Address [address] [place] [address] [place] [address] Phone Care Team Providers Care Director Of Pupil Personnel Program Name Role Phone Rosemary Mccallum MD Primary Care Provider Allergies No known active allergies Medications escitalopram oxalate (LEXAPRO) 20 MG tablet Take 20 mg by mouth daily. Active levothyroxine (SYNTHROID, LEVOTHROID) 50 MCG tabletIndications :hypothyroidism Take 50 mcg by mouth every morning. Indications: a condition with low thyroid hormone levels Active acetaminophen (TYLENOL) 500 MG tablet Take 500 mg by mouth every 6 (six) hours as needed for pain (specific location in comments). Active therapeutic multivitamin tablet Take 1 tablet by mouth daily. Active naltrexone-buPROP ion (CONTRAVE) 8-90 mg TbER per tablet Take 4 tablets by mouth 2 (two) times a day. Active polyethylene glycol (MIRALAX) 17 gram/dose powder Take 17 g by mouth daily. Active tirzepatide, weight loss, (ZEPBOUND) 5 mg/0.5 mL subcutaneous pen Inject 5 mg under the skin every 7 days. Active Active Problems Problem Noted Date Diagnosed Date CHB (complete heart block) 11/29/2024 Assessment & Plan (12/13/2024 4:16 PM EST): Underwent elective pacemaker implant on 11/29/2023 after her previous pacemaker leads failed and she was symptomatic. Here for wound check today. Incision site on left upper chest wall intact with well-approximated wound, no heat redness or drainage observed. Denying any fevers or chills. Steri-Strips in place, plan to let these fall off on their own. We discussed that if she develops any redness or drainage at the incision site or develops any systemic symptoms such as fevers or chills she should let us know. Elizabeth is going to follow-up with Dr. Vital at the next scheduled appointment 01/02 at which time device can be interrogated. Assessment & Plan (11/29/2024 9:23 PM EST): -Patient presented for elective pacemaker implant after her previous pacemakers leads failed and patient was symptomatic with dizziness -Monitor on telemetry -Repeat CXR in a.m. -Interrogation in a.m. -Continue postop keflex -Follow-up cardiology consult Acquired hypothyroidism 11/15/2018 Overview (07/27/2019): Dx as part of IVF work-up Assessment & Plan (11/15/2018 6:00 PM EST): Dx as part of IVF work-up -- results not immediately available. Likely subclinical and placed on meds per IVF protocols. Possible meds may be able to be discontinued following preg. Plan TSH level Qtrimester. Complete heart block 11/08/2018 Overview (07/27/2019): Cardiac rhythm abnormality first diagnosed in 1991- progressed to complete heart block in 1998 when she had a pacemaker placed. Pacemaker replaced February 2017. Assessment & Plan (06/10/2019 3:58 PM EDT): Anesthesia consult complete - Per anesthesia she is ok for epidural or C/S. [facility] is available for consult if needed(there is a note from Dr Yrn Ponce that a magnet would be needed over pacemaker during the C/S if electocautery is used) On admission, Dr Toure from anesthesia, Dr Mondragon from [facility] and Dr Ortiz OB all made aware of pt and cardio history Assessment & Plan (12/26/2018 11:10 AM EST): As mentioned she had a pulse generator replaced in February 2017 we are going to get her enrolled in our remote device clinic she has a Medtronic device. I do not feel there has been any problems with it thus far Assessment & Plan (12/01/2018 4:35 PM EST): Referral placed for urgent cardiology consult- February will call to schedule appointment. MFM consult and level 2 ultrasound pending. Assessment & Plan (11/15/2018 6:17 PM EST): Pacemaker replaced February 2017. Resolved Problems Problem Noted Date Diagnosed Date Resolved Date Normal intrauterine , antepartum 06/10/2019 07/27/2019 Normal labor 06/10/2019 07/27/2019 Assessment & Plan (06/10/2019 8:03 PM EDT): 06/10/19 Ctxs began at 0130 SROM 1330 thin mec 1500 VE 4/100/-2 Using Nitrous, requesting epidural 1730 Comfortable with epidural, Cat II tracing with lates. Moderate variability VE 7-8/100/-2 to -1 1930 Continuing Cat II tracing with mixed variables/lates but still continued good variability VE ant lip/-1 - attempted a push without reduction of lip A/P IUP at 39 4/7 wks GA Active Labor SROM with thin mec staining x 7.5 hrs Cat II EFM but overall reassuring - will continue to monitor closely Elevated BP - in h/o there is a mention of h/o Borderline HTN, Nml HELLP labs High Risk d/t AMA, Pacemaker, HTN Change positions - try hands and knees, O2 and IV bolus for Cat II tracing Expectant management Anticipate OB, Anesthesia, Tech in house and available as needed Vaginal bleeding in pregnanc y, first trimester 11/15/2018 02/22/2019 Overview (02/22/2019): Bleeding at 8-9wks gestation. US at 10wks shows small 1.04 x 1.96 cm clot inf to gest sac. Close to cervix. Doesn't appear retroplacental. Assessment & Plan (11/15/2018 5:56 PM EST): Bleeding at 8-9wks gestation. US at 10wks shows small 1.04 x 1.96 cm clot inf to gest sac. Doesn't appear retroplacental. Anxiety in in firs t trimester, antepartum 11/15/2018 07/27/2019 Overview (11/15/2018): Taking SSRI, Lexapro. Discussed with pt ?? small increased risk for persistent pulmonary hypertension in infants exposed to SSRI in late . Discussed baby may have temporary withdrawal symptoms but there is no evidence that discontinuing or tapering dosages near the end of reduces the risk of these symptoms for the . In addition, it may increase pt's risk of a relapse. Assessment & Plan (11/15/2018 6:09 PM EST): Taking SSRI, Lexapro. Discussed with pt ?? small increased risk for persistent pulmonary hypertension in infants exposed to SSRI in late . Discussed baby may have temporary withdrawal symptoms but there is no evidence that discontinuing or tapering dosages near the end of reduces the risk of these symptoms for the . In addition, it may increase pt's risk of a relapse. High-risk , primigr avida of advanced maternal age in first trimester 11/15/2018 07/27/20 19 Overview (06/06/2019): High risk- AMA > 40, complete heart block CNAndrea/ co care Childbirth Ed? Group PN care- considering IVF Rh positive Tdap 04/18 Flu * Hgb 12.5 GTT 134 GBS neg PPBC * o Risks of aneuploidy discussed w patient. o Offered - Offer cell free DNA - Level 2 - Offer [facility] and amnio - Pt. chooses o FKC at 36 wks o BPP wkly at 36wks, MFM recommends serial growth U/S in third trimester. Has U/S scheduled for 04/18- 35% normal BPP o Disc option for induction after 39 wks - IOL scheduled for 06/10 Chart reviewed GL Assessment & Plan (06/07/2019 11:48 AM EDT): Elizabeth is doing well, no concerns. Discussed IOL process at length. Had BPP today: 06/14, SANTIAGO 8.8, vtx. Requested membrane sweep - SVE 1-2/90/-2. Discussed skipping cervical ripening and coming for balloon and/or Pit on Tuesday morning, 06/11. +FM. Denies UCs, VB, LOF. Labor and warning signs reviewed. Assessment & Plan (12/26/2018 11:10 AM EST): Doing well at the present time Assessment & Plan (11/15/2018 6:12 PM EST): Risks of AMA reviewed with pt. Use of low dose aspirin daily after 12 wks gestation reviewed in reducing risk of preeclampsia. Genetic risks reviewed. Pt desire cell free DNA testing and will have testing drawn today. resulting from in vitro fertilization in first trimester 11/15/2018 019 Overview (01/31/2019): Risks of IVF and increased risk of delivery reviewed. Increased surveillance after 32 wks reviewed. Normal echo. Assessment & Plan (11/15/2018 6:13 PM EST): Risks of IVF and increased risk of delivery reviewed. Increased surveillance after 32 wks reviewed. Encounters Date Type Department Care Team Description 07/12/2025 3:20 PM EDT Office [facility] [address] [place] [address] Deshawn Vital MD Complete heart block (Primary Dx) from Last 3 Months Immunizations Immunization Administration Dates Next Due COVID-19 (Pre-08/29) Pfizer Vaccine, mRNA, PF 02/19/2021,01/28/2021 INFLUENZA, SPLIT VIRUS, TRIVALENT PF 11/30/2024( Deferred: Patient Refused) Influenza Quadrivalent MDCK Preservative Free IM 08/11/2020 Influenza Quadrivalent MDCK w/Preservative IM 09/23/2019 Influenza Quadrivalent Prese rvative Free IM 11/09/2018 Tdap 04/18/2019 Family History Medical History Relation Comments Cancer Mother Cervical cancer Mother Relation Status Comments Father Alive Mother cervical cancer Social History Tobacco Use Types Packs/Day Years [...] 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 file Not on file Not on file Last Filed Vital Signs Vital Sign Reading Time Taken Comments Blood Pressure 122/70 07/12/2025 3:23 PM EDT Pulse 70 07/12/2025 3:23 PM EDT Temperature 36.3 C (97.3 F) 11/30/2024 8:43 AM EST Respiratory Rate 18 11/30/2024 8:43 AM EST Oxygen Saturation 98% 07/12/2025 3:23 PM EDT Inhaled Oxygen Concentration 100% 06/10/2019 1 1:04 PM EDT Weight 77.1 kg (170 lb) 07/12/2025 3:23 PM EDT Height 154 cm (5' 0.63 ) 07/12/2025 3:23 PM EDT Body Mass Index 32.51 07/12/2025 3:23 PM EDT Plan of Treatment Upcoming Encounters Date Type Department Care Team (Late st Contact Info) Description 07/16/2026 4:00 PM EDT Office Visit [facility] [address] [facility] [address], [address] [place], [place] [id number] Deshawn Vital MD [address] [place] [address] Health Maintenance Due Date Last Done Comments LIPID PANEL 1975 DEPRESSION SCREENING 1988 MAMMOGRAM 2016 TSH LEVEL 03/26/2020 03/26/2019, 11/15/2018 COLOGUARD 2021 COLONOSCOPY 2021 COLORECTAL CANCER SCREENING 2021 FIT TEST 2021 FOBT 2021 SIGMOIDOSCOPY 2021 VIRTUAL COLONOSCOPY 2021 INFLUENZA VACCINE (#1) 2025 , 10/14/2022, 11/05/2021, Additional history exists COVID-19 VACCINE ( season) 2025 11/05/2021, 02/19/2021, 01/28/2021 PAP SMEAR 10/14/2027 10/14/2022, 07/09, 07/27/2019 SCREENING FOR DIABETES 11/30/2027 11/30/2024 Adult Td,Tdap Booster 04/18/2029 04/18/2019 HEPATITIS C SCREENING Completed 12/29/2018 HIV ONE-TIME SCREENING (18-65 YEARS) Completed 12/29/2018 SMOKING STATUS SCREENING (Once After 26 Yrs) Completed 07/12/2025 HEPATITIS A VACCINES Aged Out No long er eligible based on patient's age to complete this topic HIB VACCINES Aged Out No longer eligi ble based on patient's age to complete this topic MENINGOCOCCAL VACCINES (ACWY) Aged Out No longer eligible based on patient's age to complete this topic MENINGOCOCCAL VACCINES (B) Aged Out N o longer eligible based on patient's age to complete this topic PNEUMOCOCCAL VACCINES (0-49 years) Aged Out No longer eligible based on patient's age to complete this topic Medical Devices Implanted Type Area Manager Cafe Device Identifier Shelf Expiration Date Model / Serial / Lot Envelope Tyrx Absorbable Antibacterial Med Sterile - [id number] Implanted:Qty: 1 on 08/11/2021 by Rose Mary Vincent MD at [facility] Collagen [employer] [id number] 05/01/2022 [id number] / / [id number] Lead Tendril Sts 6fr 58cm Pacing Optim Insulation Ext/Ret Gordon Silicone Tip Is-1 Bipolar Connector - [id number] Implanted:Qty: 1 on 11/29/2024 by Deshawn Vital MD at [facility] Lead [employer] [id number] 01/04/2027 2088TC/58 / [id number] / Lead Tendril Sts 6fr 52cm Pacing Optim Insulation Ext/Ret Gordon Silicone Tip Is-1 Bipolar Connector - [id number] Implanted:Qty: 1 on 11/29/2024 by Deshawn Vital MD at [facility] Lead [employer] [id number] 06/06/2027 2088TC/52 / [id number] / Pacemaker Pacemaker Pacemaker Dual Chamber [id number] 20g 10.4cc Is-1 Connector Assurity Mri - [id number] Implanted:Qty: 1 on 11/29/2024 by Deshawn Vital MD at [facility] Pacemaker [employer] [id number] 04/06/2026 [id number] / [id number] / Procedures Procedure Name Priority Date/Time Associated Diagnosis Comments PAP TEST Routine 10/14/2022 12:00 AM EST TSH WITH REFLEX Routine 03/26/2019 10:41 AM EDT Acquired hypothyroidism HEPATITIS C ANTIBODY, QUALITATIVE Routine 12/29/2018 4:39 PM EST High-risk , primigravida of advanced maternal age in first trimester from Last 3 Months or Most Recently Relevant to Health Maintenance Results * Pap Smear (10/14/2022 12:00 AM EST) 10/14/2022 10/15/2022 9:0 7 AM EST Narrative SEE NARRATIVE - 10/20/2022 11:37 AM EST [address] [place] [address] Electric Range Assembler: Veronika Pompa MD SUSTAINMENT LOGISTICS ANALYST Cytology Report FINAL DIAGNOSIS A. PAP SMEAR (SUREPATH) CE: SPECIMEN ADEQUACY: Satisfactory for evaluation; transformation zone present. INTERPRETATION: NEGATIVE FOR INTRAEPITHELIAL LESION OR MALIGNANCY. Electronically Signed Out By: TONI Mujica(ASCP) The Pap test is a screening test primarily for squamous cancers and precursors and has associated false-negative and false-positive results. New technologies such as liquid-based preparations may decrease but will not eliminate all false-negative results. Regular sampling and follow-up of unexplained clinical signs and symptoms are recommended to minimize false negative results. PROCEDURES/ADDENDA HPV Testing (Requested) Ordered Date: 10/15/2022 A. PAP SMEAR (SUREPATH) CE: Human Papilloma Virus Test Negative for high-risk human papillomavirus types 16, 18, 45 and the Other high risk probe set (Includes 31, 33, 35, 39, 51, 52, 56, 58, 59, 66, 68) by Sokrati Onclarity HR-HPV analysis. Clinical correlation is advised. This HPV test was performed at [facility], [address] [place] [address]. This test has been FDA approved for SurePath cervical cytology specimens. The accuracy and precision of this test for all other specimen sources has been verified in the Cytopathology Laboratory of the [facility] and has not been cleared or approved by the U.S. Food and Drug Administration. Clinical correlation is advised. CLINICAL HISTORY Date of Last Menstrual Period: 09-28-2022 Other Clinical Conditions: Screening Pap SPECIMEN SOURCE A: PAP SMEAR (SUREPATH) CE Patient Name: February : 1975 (Age: 47) Sex: F Institution: [facility] Location: [facility] Date of Collection: 10/14/2022 Date of Reported: 10/20/2022 11:37 Results to: Rosemary Mccallum MD us Rosemary Mccallum MD CYTOLOGY ORDERABLES Final Re sult SEE NARRATIVE * TSH with reflex (03/26/2019 10:41 AM EDT) TSH 1.42 0.27 - 4.20 uIU/mL [facility] Blood 03/26/2019 10:4 1 AM EDT 03/26/2019 12:13 PM EDT us Genny Toney CNM LAB BLOOD ORDERABLES F inal Result Performing Organization Address City/[facility]/ZIP Co de Phone Number [address] [address] * Hepatitis C antibody, qualitative (12/29/2018 4:39 PM EST) HCV Negative Negative [facility] Comment: This is a screening test and should be confirmed with molecular testing Blood 12/29/2018 4:39 PM EST 12/29/2018 4:46 PM EST us Alpa Bearden [facility] LAB BLOOD ORDERABLES Fin al Result Performing Organization Address [facility] Co de Phone Number [address] [address] from Last 3 Months or Most Recently Relevant to Health Maintenance Insurance Advance Directives For more information, please contact: [phone] (9AM - 5PM [facility], Tuesday-Tuesday) Documents on File Type Date Recorded Patient Radiotelephone Operator Expl anation Healthcare Proxy 06/14/2019 12:05 PM * Full Code (Latest Code Status on File) Date Activated Date Inactivated Comments 11/29/2024 8:43 PM Question Answer Comments Code Status Confirmed With: Patient * Full Code Date Activated Date Inactivated Comments 08/11/2021 12:03 PM 11/29/2024 8:43 PM Question Answer Comments Code Status Confirmed With: Patient * Full Code (Presumed) Date Activated Date Inactivated Comments 06/11/2019 3:55 AM 06/13/2019 11:24 PM * Full Code (Presumed) Date Activated Date Inactivated Comments 06/10/2019 3:31 PM 06/11/2019 3:55 AM Care Teams Director Of Pupil Personnel Program Relationship Specialty Start Date End Date Rosemary Mccallum MD [address] [place] [phone] [email or web address] PCP - General Family Medicine 11/21/24 Additional Source Comments The information contained in this document represents components of the legal health record. It is not the complete legal health record.[facility]
--- OUTSIDE RECORDS SUMMARY | 2025-07-29 11:08 | XMS_ITS | Encounter Summary ---
Author Organization [facility] Address [address] [place] [address] [place] [address] Phone Care Team Providers Care Glass Or Mirror Inspector Name Role Phone Rosemary Alexandra MD Primary Care Provider [phone] Unknown, Unknown Primary Care Provider Rosemary Cedeno MD Primary Care Provider [phone] Rosemary Alexandra MD Primary Care Provider [phone] Encounter Details Date Type Department Care Team (Late st Contact Info) Description 12/26/2018 Ancillary Orders Non-Invasive Cardiology [address] [place] [address] [place] [address] Rosalino Faulkner MD [address] [place] [address] [email or web address] Complete heart block Social History Tobacco Use Types Packs/Day Years [...] 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 Not on file Not on file documented as of this encounter Plan of Treatment Upcoming Encounters Date Type Department Care Team (Late st Contact Info) Description 07/16/2026 4:00 PM EDT Office Visit [facility] [address] Floor, [address] [place] [address] Deshawn Vital MD [address] [place] [address] [email or web address] documented as of this encounter Visit Diagnoses Diagnosis Complete heart block Atrioventricular block, complete documented in this encounter Care Teams Glass Or Mirror Inspector Relationship Specialty Start Date End Date Rosemary Alexandra MD PCP - General Family Medicine 11/15/18 01/10/19 Unknown, Unknown, MD PCP - General 01/11/19 01/14/19 Rosemary Alexandra MD PCP - General Family Medicine 01/15/19 11/20/24 Rosemary Alexandra MD [address] [place] [phone] PCP - General Family Medicine 11/21/24 documented as of this encounter Additional Source Comments The information contained in this document represents components of the legal health record. It is not the complete legal health record.[facility]
--- OUTSIDE RECORDS SUMMARY | 2025-07-29 11:08 | XMS_ITS | Encounter Summary ---
Author Organization [facility] Address [address] [place] [address] [address] [place] [address] Phone Care Team Providers Care Research And Development Manager Name Role Phone Rosemary Alexandra MD Primary Care Provider [phone] Rosemary Alexandra MD Primary Care Provider [phone] Encounter Details Date Type Department Care Team (Late Contact Info) Description 08/11/2021 Procedure Pass [facility] [address] [place] [address] Social History Tobacco Use Types Packs/Day Years [...] Description 07/16/2026 4:00 PM EDT Office Visit [facility] [address] [facility] [address]rd Floor, [address] [place] [address] Deshawn Vital MD [address] [place] [address] documented as of this encounter Visit Diagnoses Not on filedocumented in this encounter Care Teams Research And Development Manager Relationship Specialty Start Date End Date Rosemary Alexandra MD [email or web address] PCP - General Family Medicine 01/15/19 11/20/24 Rosemary Alexandra MD [address] [place] [address] [email or web address] PCP - General Family Medicine 11/21/24 documented as of this encounter Additional Source Comments The information contained in this document represents components of the legal health record. It is not the complete legal health record.[facility]
--- OUTSIDE RECORDS SUMMARY | 2025-07-29 11:08 | XMS_ITS | Encounter Summary ---
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 Not on file Not on file documented as of this encounter Plan of Treatment Upcoming Encounters Date Type Department Care Team (Late Contact Info) Description 07/16/2026 4:00 PM EDT Office Visit [facility] [address] [facility] 3rd Floor, [address] [place] [address] Deshawn Vital MD [address] [place] [address] documented as of this encounter Visit Diagnoses Not on filedocumented in this encounter Care Teams Granite Block Paver Relationship Specialty Start Date End Date Rosemary Alexandra MD [email or web address] PCP - General Family Medicine 01/15/19 11/20/24 Rosemary Alexandra MD [address] [place] [phone] [email or web address] PCP - General Family Medicine 11/21/24 documented as of this encounter Additional Source Comments The information contained in this document represents components of the legal health record. It is not the complete legal health record.[facility]
--- OUTSIDE RECORDS SUMMARY | 2025-07-29 11:08 | XMS_ITS | Encounter Summary ---
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 on file Not on file Not on file documented as of this encounter Plan of Treatment Upcoming Encounters Date Type Department Care Team (Late st Contact Info) Description 07/16/2026 4:00 PM EDT Office Visit [facility] [address] [facility] [place] [address] Deshawn Vital MD [address] [place] [address] documented as of this encounter Visit Diagnoses Not on filedocumented in this encounter Care Teams Cell Cleaner Relationship Specialty Start Date End Date Rosemary Alexandra MD PCP - General Family Medicine 01/15/19 11/20/24 Rosemary Alexandra MD [address] [place] [address] PCP - General Family Medicine 11/21/24 documented as of this encounter Additional Source Comments The information contained in this document represents components of the legal health record. It is not the complete legal health record.[facility]
--- OUTSIDE RECORDS SUMMARY | 2025-07-29 11:08 | XMS_ITS | Encounter Summary ---
Author Organization [facility] Address [address] [place] [address] Phone Care Team Providers Care Fixer Boarding Room Name Role Phone Unknown, Unknown Primary Care Provider Rosemary Cedeno MD Primary Care Provider Rosemary Alexandra MD Primary Care Provider Encounter Details Date Type Department Care Team (Late st Contact Info) Description 01/11/2019 Ancillary Orders [facility] [address] [place] [id number] Alpa Bearden CNM [address] 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 Not on file Not on file documented as of this encounter Plan of Treatment Upcoming Encounters Date Type Department Care Team (Late Contact Info) Description 07/16/2026 4:00 PM EDT Office Visit [facility] [address] [facility] 3rd Floor, [address] [place] [address] Deshawn Vital MD [address] [place] [address] documented as of this encounter Visit Diagnoses Not on filedocumented in this encounter Care Teams Fixer Boarding Room Relationship Specialty Start Date End Date Unknown, Unknown, MD PCP - General 01/11/19 01/14/19 Rosemary Alexandra MD PCP - General Family Medicine 01/15/19 11/20/24 Rosemary Alexandra MD [address] [place] [address] PCP - General Family Medicine 11/21/24 documented as of this encounter Additional Source Comments The information contained in this document represents components of the legal health record. It is not the complete legal health record.[facility]
--- OUTSIDE RECORDS SUMMARY | 2025-07-29 11:08 | XMS_ITS | Encounter Summary ---
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 Not on file Not on file Not on file documented as of this encounter Plan of Treatment Upcoming Encounters Date Type Department Care Team (Late st Contact Info) Description 07/16/2026 4:00 PM EDT Office Visit [facility] [address] [place] [address] 3rd Floor, [address] [place] [address] Deshawn Vital MD [address] [place] [address] documented as of this encounter Visit Diagnoses Not on filedocumented in this encounter Care Teams Street Light Mechanic Relationship Specialty Start Date End Date Rosemary Alexandra MD [address] [place] [phone] PCP - General Family Medicine 11/21/24 documented as of this encounter Additional Source Comments The information contained in this document represents components of the legal health record. It is not the complete legal health record.[facility]
--- OUTSIDE RECORDS SUMMARY | 2025-07-29 11:08 | XMS_ITS | Encounter Summary ---
Author Organization [facility] Address [address] [facility] [address] [place] [address] Phone Care Team Providers Care White Shoe Examiner Name Role Phone Unknown, Unknown Primary Care Provider Rosemary Cedeno MD Primary Care Provider [phone] Rosemary Alexandra MD Primary Care Provider [phone] Encounter Details Date Type Department Care Team (Late st Contact Info) Description 01/11/2019 Ancillary Orders [facility] [address] [place] [address] Alpa Bearden CNM [address] [facility], [address] [place] [address] [email or web address] Social History Tobacco Use Types Packs/Day Years [...] 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 Not on file Not on file documented as of this encounter Plan of Treatment Upcoming Encounters Date Type Department Care Team (Late Contact Info) Description 07/16/2026 4:00 PM EDT Office Visit [facility] [address] [facility] 3rd Floor, [address] [place] [address] Deshawn Vital MD [address] [place] [address] documented as of this encounter Visit Diagnoses Not on filedocumented in this encounter Care Teams White Shoe Examiner Relationship Specialty Start Date End Date Unknown, Unknown, MD PCP - General 01/11/19 01/14/19 Rosemary Alexandra MD PCP - General Family Medicine 01/15/19 11/20/24 Rosemary Alexandra MD [address] [place] [phone] PCP - General Family Medicine 11/21/24 documented as of this encounter Additional Source Comments The information contained in this document represents components of the legal health record. It is not the complete legal health record.[facility]
--- OUTSIDE RECORDS SUMMARY | 2025-07-29 11:08 | XMS_ITS | Encounter Summary ---
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 PCP - General Family Medicine 01/15/19 11/20/24 Rosemary Alexandra MD [address] [place] [address] [email or web address] PCP - General Family Medicine 11/21/24 documented as of this encounter Additional Source Comments The information contained in this document represents components of the legal health record. It is not the complete legal health record.[facility]
--- OUTSIDE RECORDS SUMMARY | 2025-07-29 11:09 | XMS_ITS | Encounter Summary ---
Author Organization [facility] Address [address] [place] [address] [address] [place] [address] Phone Care Team Providers Care Inventory Assistant Name Role Phone Rosemary Alexandra MD Primary Care Provider [phone] Rosemary Alexandra MD Primary Care Provider [phone] Encounter Details Date Type Department Care Team (Late Contact Info) Description 10/11/2019 Ancillary Orders Non-Invasive Cardiology [address] [place] [address] Rosalino Faulkner MD [address] [place] [address] [email or web address] Complete heart block Social History Tobacco Use [...] 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 Not on file Not on file documented as of this encounter Plan of Treatment Upcoming Encounters Date Type Department Care Team (Late st Contact Info) Description 07/16/2026 4:00 PM EDT Office Visit [facility] [address], [address] [place] [address] Deshawn Vital MD [address] [place] [address] [email or web address] documented as of this encounter Visit Diagnoses Diagnosis Complete heart block Atrioventricular block, complete documented in this encounter Care Teams Inventory Assistant Relationship Specialty Start Date End Date Rosemary Alexandra MD PCP - General Family Medicine 01/15/19 11/20/24 Rosemary Alexandra MD [address] [place] [phone] PCP - General Family Medicine 11/21/24 documented as of this encounter Additional Source Comments The information contained in this document represents components of the legal health record. It is not the complete legal health record.[facility]
== END 2025-07-29 09:27 | disposition home or self-care (01) ==
LOC: HO.HBS 09:27
PROVIDERS: PCP Family Medicine; Visit Provider Physician Assistant Surgical
DX: E66.9 Obesity, unspecified (principal); Z98.84 Bariatric surgery status
CPT/HCPCS: 99214; G2211

== ENCOUNTER 2025-09-02 09:24 | Outpatient (REF) | payer OTHER, SELFPAY ==
[2025-09-02 09:39] LABS: MANUAL DIFF FLAG NO
[2025-09-02 10:30] LABS: Hematocrit 40.6 % (37.0-47.0); Hemoglobin 13.4 g/dl (12.0-16.0); Imm Gran Abs Auto 0.01 X10*3/uL (0.00-0.03); Imm Gran Pct Auto 0.2 % (0.0-0.4); Lymphocytes Absolute Auto 2.0 X10*3/uL (1.2-4.9); Mean Corpuscular HGB Conc 33.0 g/dl (31.0-35.0); Mean Corpuscular Hemoglobin 31.3 pg (27.0-33.0); Mean Corpuscular Volume 94.9 fL (80.0-98.0); NRBC Abs Auto 0.000 X10*3/uL (0.0-0.012); NRBC Pct Auto 0.0 /100WBC (0.0-0.2); Platelet Count 210 X10*3/uL (160-400); Red Blood Count 4.28 X10*6/uL (4.20-5.50); White Blood Count 4.5 X10*3/uL (4.8-10.8)
[2025-09-02 11:22] LABS: Alanine Aminotransferase 21 U/L (0-31); Albumin Level 4.0 g/dL (3.5-5.0); Alkaline Phosphatase 56 U/L (39-117); Anion Gap 10 (12-20); Aspartate Amino Transferase 27 U/L (5-31); Blood Urea Nitrogen 15 mg/dL (9-16); Calcium 8.8 mg/dL (8.4-10.2); Carbon Dioxide 27 mmol/L (22-29); Chloride 106 mmol/L (96-108); Cholesterol 184 mg/dL (<200); Estimated Glomerular Filt Rate > 60; Ferritin 23 ng/mL (10-250); HDL Cholesterol 65 mg/dL (>40); Iron 114 mcg/dL (30-160); Percent Iron Saturation 46 % (15-50); Potassium 4.2 mmol/L (3.3-5.1); Sodium 139 mmol/L (135-145); Total Iron Binding Capacity 250 mcg/dL (228-428); Total Protein 7.1 g/dL (6.5-8.0); Triglycerides 58 mg/dL (<150); Unsaturated Iron Binding 136 ug/dL
[2025-09-02 11:38] LABS: Folate 13.2 ng/mL (> or = 4.0); Vitamin B12 855 pg/mL (200-900)
== END 2025-09-02 09:25 | disposition home or self-care (01) ==
LOC: HO.LAB 09:24
PROVIDERS: PCP Family Medicine; Visit Provider Physician Assistant Surgical
DX: Z13.1 Encounter for screening for diabetes mellitus (principal); Z13.29 Encounter for screening for other suspected endocrine disorder; E66.9 Obesity, unspecified; Z98.84 Bariatric surgery status
CPT/HCPCS: 36415; 80053; 80061; 82607; 82728; 82746; 83036; 83525; 83540; 84425; 84443; 84590; 84630; 85025; 86140